=== PATIENT | female | born 1955 | race African-American/Black ===

== ENCOUNTER → 2017-08-18 | Outpatient (CLI) | payer MEDICARE ==
[~2017-08-18] MED LIST: BP MED; LISI2.5T3 PO; METF500T4 PO; OXYB5TAB PO
[2017-08-18 12:53] LABS: AUTOMATED NEUTROPHIL # 4.9 TH/MM3 (1.8-7.7); BASOPHIL # 0.1 TH/MM3 (0-0.2); BASOPHIL % 0.7 % (0.0-2.0); EOSINOPHIL # 0.1 TH/MM3 (0-0.4); EOSINOPHIL % 1.1 % (0.0-4.0); HEMATOCRIT 40.1 % (35.0-46.0); HEMOGLOBIN 13.1 GM/DL (11.6-15.3); LYMPH % 31.4 % (9.0-44.0); LYMPHOCYTE # 2.6 TH/MM3 (1.0-4.8); MEAN CELL VOLUME 80.6 FL (80.0-100.0); MEAN CORPUSCULAR HEMOGLOBIN 26.2 PG (27.0-34.0); MEAN CORPUSCULAR HGB CONC 32.6 % (32.0-36.0); MEAN PLATELET VOLUME 9.7 FL (7.0-11.0); MONO % 7.3 % (0.0-8.0); MONOCYTE # 0.6 TH/MM3 (0-0.9); NEUT % 59.5 % (16.0-70.0); PLATELET COUNT 229 TH/MM3 (150-450); RED BLOOD COUNT 4.98 MIL/MM3 (4.00-5.30); RED CELL DISTRIBUTION WIDTH 15.1 % (11.6-17.2); WHITE BLOOD COUNT 8.3 TH/MM3 (4.0-11.0)
[2017-08-18 13:04] LABS: PROTHROMBIN TIME - PATIENT 10.1 SEC (9.8-11.6)
[2017-08-18 13:19] LABS: ALBUMIN 3.6 GM/DL (3.4-5.0); ALT (GPT) 18 U/L (10-53); AST (GOT) 13 U/L (15-37); BICARBONATE 28.6 MEQ/L (21.0-32.0); BLOOD UREA NITROGEN 11 MG/DL (7-18); CALCIUM 9.5 MG/DL (8.5-10.1); CHLORIDE 101 MEQ/L (98-107); GLOMERULAR FILTRATION RATE 89 ML/MIN (>89); GLUCOSE,FASTING 133 MG/DL (74-99); SODIUM (NA) 140 MEQ/L (136-145)
--- NOTE | 2017-08-18 13:22 | RADRPT ---
EXAM DATE/TIME: 08/18/2017 12:41 [facility] COMPARISON: No previous studies available for comparison. INDICATIONS : Evaluate for pneumonia, pneumothorax or communicable disease. Pre op hysterectomy. MEDICAL HISTORY : None. SURGICAL HISTORY : None. ENCOUNTER: Initial ACUITY: 1 day PAIN SCORE: 0/10 LOCATION: Bilateral chest FINDINGS: PA and lateral views of the chest demonstrate the lungs to be symmetrically aerated without evidence of mass, infiltrate or effusion. The cardiomediastinal contours are unremarkable. Osseous structure s are intact. CONCLUSION: Normal examination. Chung Ruano MD on August 18, 2017 at 13:21 Board Certified Radiologist. This report was verified electronically.
[2017-08-18 13:25] LABS: ALKALINE PHOSPHATASE 102 U/L (45-117); TOTAL BILIRUBIN ADULT 0.4 MG/DL (0.2-1.0); TOTAL PROTEIN 7.9 GM/DL (6.4-8.2)
--- NOTE | 2017-08-19 08:53 | EKG ---
Date Performed: 08/18/2017 Time Performed: 11:57:12 PTAGE: 61 years EKG: SINUS TACHYCARDIA MINIMAL VOLTAGE CRITERIA FOR LVH, CONSIDER NORMAL VARIANT POSSIBLE ANTERI OR MYOCARDIAL INFARCTION, PROBABLY OLD ABNORMAL RHYTHM ECG NO PREVIOUS TRACING DOCTOR: Emani Trinh Interpretating Date/Time 08/19/2017 08:51:34
== END ==
LOC: CPRE 11:33
PROVIDERS: ATTEND Obstetrics & Gynecology Gynecologic Oncology
DX: Z01.810 Encounter for preprocedural cardiovascular examination (principal); Z01.811 Encounter for preprocedural respiratory examination; Z01.812 Encounter for preprocedural laboratory examination; C54.1 Malignant neoplasm of endometrium; R94.31 Abnormal electrocardiogram [ECG] [EKG]
CPT/HCPCS: 36415; 71046; 80053; 85025; 85610; 85730; 88321; 93005

== ENCOUNTER 2017-08-29 15:39 | Emergency (ER) | payer MEDICARE ==
[~2017-08-29] VITALS: Ht 162.6 cm; Wt 81.8 kg
[~2017-08-29 15:39] MED LIST changes: -BP MED
[2017-08-29 15:50] VITALS: BP 188/102; PULSE 109; RESP 20; TEMP 98.2; O2SAT 100
--- NOTE | 2017-08-29 16:52 | RADRPT ---
EXAM DATE/TIME: 08/29/2017 16:17 [facility] COMPARISON: CHEST PA & LAT, August 18, 2017, 12:41. INDICATIONS : Chest pain. MEDICAL HISTORY : None. SURGICAL HISTORY : None. ENCOUNTER: Initial ACUITY: 1 day PAIN SCORE: 7/10 LOCATION: Bilateral chest FINDINGS: PA and lateral views of the chest demonstrate the lungs to be symmetrically aerated without evidence of mass, infiltrate or effusion. The cardiomediastinal contours are unremarkable. Osseous structure s are intact. CONCLUSION: 1. No acute cardiopulmonary findings identified. Emmanuel Bartholomew MD on August 29, 2017 at 16:50 Board Certified Radiologist. This report was verified electronically.
[2017-08-29 17:23] VITALS: BP 177/89; PULSE 93; RESP 17; O2SAT 98
[2017-08-29] MEDS ORDERED: TRIA1CAP6 PO (17:23)
[2017-08-29 17:24] LABS: AUTOMATED NEUTROPHIL # 5.7 TH/MM3 (1.8-7.7); BASOPHIL % 0.3 % (0.0-2.0); EOSINOPHIL # 0.3 TH/MM3 (0-0.4); EOSINOPHIL % 2.7 % (0.0-4.0); HEMATOCRIT 38.8 % (35.0-46.0); HEMOGLOBIN 12.7 GM/DL (11.6-15.3); LYMPH % 32.8 % (9.0-44.0); LYMPHOCYTE # 3.2 TH/MM3 (1.0-4.8); MEAN CORPUSCULAR HEMOGLOBIN 26.8 PG (27.0-34.0); MEAN CORPUSCULAR HGB CONC 32.7 % (32.0-36.0); MEAN PLATELET VOLUME 9.3 FL (7.0-11.0); MONO % 5.7 % (0.0-8.0); MONOCYTE # 0.5 TH/MM3 (0-0.9); NEUT % 58.5 % (16.0-70.0); PLATELET COUNT 218 TH/MM3 (150-450); RED BLOOD COUNT 4.73 MIL/MM3 (4.00-5.30); RED CELL DISTRIBUTION WIDTH 15.6 % (11.6-17.2); WHITE BLOOD COUNT 9.7 TH/MM3 (4.0-11.0)
[2017-08-29 17:46] LABS: ALBUMIN 3.3 GM/DL (3.4-5.0); ALT (GPT) 20 U/L (10-53); AST (GOT) 16 U/L (15-37); BICARBONATE 26.8 MEQ/L (21.0-32.0); BLOOD UREA NITROGEN 14 MG/DL (7-18); CALCIUM 9.2 MG/DL (8.5-10.1); CHLORIDE 103 MEQ/L (98-107); CREATININE 1.01 MG/DL (0.50-1.00); GLOMERULAR FILTRATION RATE 68 ML/MIN (>89); GLUCOSE,RANDOM 179 MG/DL (74-106); MAGNESIUM 2.1 MG/DL (1.5-2.5); SODIUM (NA) 138 MEQ/L (136-145)
[2017-08-29 17:48] LABS: PROTHROMBIN TIME - PATIENT 9.8 SEC (9.8-11.6)
[2017-08-29 17:49] LABS: ALKALINE PHOSPHATASE 114 U/L (45-117); TOTAL BILIRUBIN ADULT 0.1 MG/DL (0.2-1.0); TOTAL PROTEIN 7.9 GM/DL (6.4-8.2); TROPONIN I LESS THAN 0.02 NG/ML (0.02-0.05)
--- NOTE | 2017-08-29 18:07 | PD ---
HPI Chief Complaint: Chest Pain Time Seen by Provider: 17:12 Travel History International Travel<30 days: No Contact w/Intl Traveler<30days: No Traveled to known affect area: No History of Present Illness HPI 61-year-old female arrives complaining of epigastric abdominal pain. Patient also reports vomiting. The symptoms were first noticed today at rest. She has no shortness of breath. There is no radiation of pain. There is no pleuritic pain. Patient reports a history of neoplasm and is scheduled to undergo surgery in a few days time. Decreased appetite is reported. She has had no cough or fever. PFSH Past Medical History Cancer: Yes Cardiovascular Problems: No Diabetes: No Endocrine: Yes Genitourinary: Yes (WEAK BLADDER) Hepatitis: No Hiatal Hernia: No Hypertension: Yes Musculoskeletal: Yes (ARTHRITIS IN R HAND) Neurologic: Yes (MENTAL DISABILITIES) Psychiatric: Yes Reproductive: No Respiratory: Yes Thyroid Disease: No Tetanus Vaccination: Unknown Influenza Vaccination: Yes Past Surgical History Surgical History: No Previous Surgery AICD: No Joint Replacement: No Pacemaker: No Social History Alcohol Use: No Tobacco Use: No Substance Use: No Allergies-Medications (Allergen,Severity, Reaction): Coded Allergies: No Known Allergies (Unverified Adverse Reaction, Unknown, 08/29/17) Reported Meds & Prescriptions Reported Meds & Active Scripts Active Percocet (Oxycodone-Acetaminophen) 5-325 mg Tab 1-2 Tab PO Q6H PRN Reported Dyrenium (Triamterene) 50 Mg Cap 50 Mg PO DAILY Metformin ER (Metformin HCl) 500 Mg Tabitha Unknown Dose PO DAILY With evening meal Oxybutynin ER 24 HR (Oxybutynin Chloride) 5 Mg Tab Unknown Dose PO DAILY Lisinopril 2.5 Mg Tab Unknown Dose PO DAILY Review of Systems Except as stated in HPI: all other systems reviewed are Neg General / Constitutional: No: Fever Physical Exam Narrative GENERAL: 61-year-old female pleasant well-nourished well-developed Vital Signs Date Time Temp Pulse Resp B/P (MAP) Pulse Ox O2 Delivery O2 Flow Rate FiO2 08/29/17 18:33 173/82 (112) 08/29/17 17:23 93 17 177/89 (118) 98 Room Air 08/29/17 17:18 93 17 98 Room Air 08/29/17 15:50 98.2 109 20 188/102 (130) 100 SKIN: Warm and dry. HEAD: Atraumatic. Normocephalic. EYES: Pupils equal and round. No scleral icterus. No injection or drainage. ENT: No nasal bleeding or discharge. Mucous membranes pink and moist. NECK: Trachea midline. No JVD. CARDIOVASCULAR: Regular rate and rhythm. RESPIRATORY: No accessory muscle use. Clear to auscultation. Breath sounds equal bilaterally. GASTROINTESTINAL: Minimal epigastric tenderness. Soft. Negative Stafford's sign. MUSCULOSKELETAL: Extremities without clubbing, cyanosis, or edema. No obvious deformities. NEUROLOGICAL: Awake and alert. No obvious cranial nerve deficits. Motor grossly within normal limits. Five out of 5 muscle strength in the arms and legs. Normal speech. PSYCHIATRIC: Appropriate mood and affect; insight and judgment normal. Data Data Last Documented VS Vital Signs Date Time Temp Pulse Resp B/P (MAP) Pulse Ox O2 Delivery O2 Flow Rate FiO2 08/29/17 18:33 173/82 (112) 08/29/17 17:23 93 17 98 Room Air 08/29/17 15:50 98.2 Orders Orders Electrocardiogram (08/29/17 15:53) Ckmb (Isoenzyme) Profile (08/29/17 15:53) Complete Blood Count With Diff (08/29/17 15:53) Comprehensive Metabolic Panel (08/29/17 15:53) Magnesium (Mg) (08/29/17 15:53) Prothrombin Time / Inr (Pt) (08/29/17 15:53) Act Partial Throm Time (Ptt) (08/29/17 15:53) Troponin I (08/29/17 15:53) Lipase (08/29/17 15:53) Chest, Pa & Lat (08/29/17 15:53) CKMB (08/29/17 16:10) CKMB% (08/29/17 16:10) Ed Discharge Order (08/29/17 18:21) Labs Laboratory Tests Test 08/29/17 16:10 White Blood Count 9.7 TH/MM3 Red Blood Count 4.73 MIL/MM3 Hemoglobin 12.7 GM/DL Hematocrit 38.8 % Mean Corpuscular Volume 82.0 FL Mean Corpuscular Hemoglobin 26.8 PG Mean Corpuscular Hemoglobin Concent 32.7 % Red Cell Distribution Width 15.6 % Platelet Count 218 TH/MM3 Mean Platelet Volume 9.3 FL Neutrophils (%) (Auto) 58.5 % Lymphocytes (%) (Auto) 32.8 % Monocytes (%) (Auto) 5.7 % Eosinophils (%) (Auto) 2.7 % Basophils (%) (Auto) 0.3 % Neutrophils # (Auto) 5.7 TH/MM3 Lymphocytes # (Auto) 3.2 TH/MM3 Monocytes # (Auto) 0.5 TH/MM3 Eosinophils # (Auto) 0.3 TH/MM3 Basophils # (Auto) 0.0 TH/MM3 CBC Comment DIFF FINAL Differential Comment Prothrombin Time 9.8 SEC Prothromb Time International Ratio 1.0 RATIO Activated Partial Thromboplast Time 27.7 SEC Blood Urea Nitrogen 14 MG/DL Creatinine 1.01 MG/DL Random Glucose 179 MG/DL Total Protein 7.9 GM/DL Albumin 3.3 GM/DL Calcium Level 9.2 MG/DL Magnesium Level 2.1 MG/DL Alkaline Phosphatase 114 U/L Aspartate Amino Transf (AST/SGOT) 16 U/L Alanine Aminotransferase (ALT/SGPT) 20 U/L Total Bilirubin 0.1 MG/DL Sodium Level 138 MEQ/L Potassium Level 3.4 MEQ/L Chloride Level 103 MEQ/L Carbon Dioxide Level 26.8 MEQ/L Anion Gap 8 MEQ/L Estimat Glomerular Filtration Rate 68 ML/MIN Total Creatine Kinase 112 U/L Creatine Kinase MB LESS THAN 0.5 NG/ML Troponin I LESS THAN 0.02 NG/ML Lipase 107 U/L MDM Medical Decision Making Medical Screen Exam Complete: Yes Emergency Medical Condition: Yes Medical Record Reviewed: Yes Differential Diagnosis Constipation, Gastritis, Acute Cholecystitis, Biliary Colic, Pancreatitis, MILLS , Hepatitis, Bowel Obstruction, Cystitis, Mesenteric Ischemia, AAA, Appendicitis , Renal Stone/Hydronephrosis, GERD, perforated viscous Narrative Course CBC & BMP Diagram 08/29/17 16:10 Total Protein 7.9, Albumin 3.3 L, Calcium Level 9.2, Magnesium Level 2.1, Alkaline Phosphatase 114, Aspartate Amino Transf (AST/SGOT) 16, Alanine Aminotransferase (ALT/SGPT) 20, Total Bilirubin 0.1 L Troponin less than 0.02 Lipase normal EKG shows Q waves in inferior leads without acute ischemic injury pattern The patient is resting comfortably and feels better, is alert and in no distress. The patients results and examination findings were discussed. The repeat examination is unremarkable and benign. The history, exam, diagnostic testing, and current condition do not suggest any significant pathology to warrant further testing, continued ED treatment, admission, or surgical evaluation at this point. The vital signs have been stable. The patient does not have uncontrollable pain, intractable vomiting, or other significant symptoms. The patient's condition is stable and appropriate for discharge. The patient will pursue further outpatient evaluation with a primary care physician or other designated or consulting physician as indicated in the discharge instructions. The patient expressed understanding and was agreeable with this plan. Diagnosis Primary Impression: Abdominal pain Qualified Codes: R10.9 - Unspecified abdominal pain Referrals: Primary Care Physician 2 days Med/Other Pt SpecificInfo: Prescription(s) given Scripts Oxycodone-Acetaminophen (Percocet) 5-325 mg Tab 1-2 TAB PO Q6H Y for PAIN SCALE 6 TO 10, #20 TAB 0 Refills Prov: Emmanuel Altamirano MD 08/29/17 Disposition: 01 DISCHARGE HOME Condition: Stable Emmanuel Altamirano MD Aug 29, 2017 18:07
[2017-08-29] MEDS ORDERED: PERC5TAB12 PO (18:23)
[2017-08-29 18:33] VITALS: BP 173/82
--- NOTE | 2017-08-30 20:16 | EKG ---
Date Performed: 08/29/2017 Time Performed: 16:02:56 PTAGE: 61 years EKG: SINUS TACHYCARDIA MARKED LEFT AXIS DEVIATION POSSIBLE RIGHT VENTRICULAR CONDUCTION DELAY NO NSPECIFIC T-WAVE ABNORMALITY ABNORMAL ECG PREVIOUS TRACING : 08/18/2017 11.57 Since the previous tracing, no significant change noted DOCTOR: Amy Moss Interpretating Date/Time 08/30/2017 20:16:07
== END 2017-08-29 18:40 | disposition home or self-care (01) ==
LOC: NEPE 15:39
DX: R10.13 Epigastric pain (principal); R00.0 Tachycardia, unspecified; R94.31 Abnormal electrocardiogram [ECG] [EKG]; M19.041 Primary osteoarthritis, right hand; I10 Essential (primary) hypertension; F79 Unspecified intellectual disabilities; Z79.899 Other long term (current) drug therapy
CPT/HCPCS: 71046; 80053; 82550; 82552; 83690; 83735; 84484; 85025; 85610; 85730; 93005

== ENCOUNTER 2017-09-01 05:29 | Observation (INO) | payer MEDICARE ==
[~2017-09-01] VITALS: Ht 162.6 cm; Wt 88.3 kg
[~2017-09-01 05:29] MED LIST changes: +PERC5TAB12 PO; +TRIA1CAP6 PO
[2017-09-01] MEDS ORDERED: CHLORHEXIDINE GLUCONATE 2 % 1 PACK (2 CLOTHS) TOPICAL PRN (06:00)
[2017-09-01] MEDS ORDERED: SODIUM CHLORIDE FLUSH PRN IV FLUSH (06:00)
[2017-09-01] MEDS ORDERED: POVIDONE IODINE 5% (ANTISEPSIS KIT) 4 APPLICATIONS EACH NARE PRN (06:00)
[2017-09-01] MEDS ORDERED: HEPARIN SODIUM - SQ 10,000 UNITS/ML VIAL SQ PRN (06:00)
[2017-09-01] MEDS ORDERED: ceFAZolin 2 GM PREMIX 50 ML IV SCH (06:00)
[2017-09-01] MEDS ORDERED: SODIUM CHLORID 0.9% 500 ML IV PRN (06:00)
[2017-09-01] MEDS ORDERED: METOPROLOL TARTRATE 25 MG TAB PO PRN (06:00)
[2017-09-01] MEDS ORDERED: LACTATED RINGER'S 1000 ML IV PRN (06:00)
[2017-09-01] MEDS ORDERED: DIAZ5 PO (06:44)
[2017-09-01] MEDS ORDERED: OMEP20TA93 PO (06:44)
[2017-09-01] MEDS ORDERED: DETR4CAP PO (06:44)
[2017-09-01] MEDS ORDERED: LISI-515 PO (06:44)
[2017-09-01] MEDS ORDERED: SUGAMMADEX SODIUM 200 MG/2 ML VIAL IV PUSH ONE (06:48)
[2017-09-01] MEDS ORDERED: ARTIFICIAL TEARS OPTH OINT 3.5 APPLIC/3.5 GM TUBO ONE (06:48)
[2017-09-01] MEDS ORDERED: ACETAMINOPHEN 1000 MG/100 ML 100 ML IV ONE (06:48)
[2017-09-01] MEDS ORDERED: FAMOTIDINE 20 MG/2 ML VIAL ONE (07:16)
[2017-09-01] MEDS ORDERED: LIDOCAINE 1%/EPINEPHrine 1:100,000 SOLN 20 ML VIAL INFIL ONE (09:38)
[2017-09-01] MEDS ORDERED: ceFAZolin INJ 1,000 MG VIAL IV ONE ×2 (11:41→12:00)
[2017-09-01] MEDS ORDERED: STERILE WATER FOR INJECTION 20 ML VIAL IV ONE (12:00)
[2017-09-01] MEDS ORDERED: ONDANSETRON HCL 4 MG/2 ML VIAL IV ONE (12:00)
[2017-09-01] MEDS ORDERED: ESMOLOL HCL 100 MG/10 ML VIAL IV ONE (12:00)
[2017-09-01] MEDS ORDERED: LABETALOL HCL 100 MG/20 ML VIAL IV ONE (12:00)
[2017-09-01] MEDS ORDERED: PROPOFOL 200 MG/20 ML AMP IV ONE (12:00)
[2017-09-01] MEDS ORDERED: KETOROLAC TROMETHAMINE 30 MG/ML (IVP) VIAL IV PUSH ONE (12:00)
[2017-09-01] MEDS ORDERED: NORMOSOL R INJ 1,000 ML IV ONE (12:00)
[2017-09-01] MEDS ORDERED: DEXAMETHASONE SOD PHOS 4 MG/ML VIAL IV ONE (12:00)
[2017-09-01] MEDS ORDERED: PHENYLEPH/NS 1000 MCG/10 ML SYR IV ONE (12:00)
[2017-09-01] MEDS ORDERED: ROCURONIUM INJ 50 MG/5 ML SYRINGE IV PUSH ONE (12:00)
[2017-09-01] MEDS ORDERED: VECURONIUM BROMIDE 20 MG VIAL IV ONE (12:00)
[2017-09-01] MEDS ORDERED: diphenhydrAMINE HCL 25 MG CAP PO PRN (12:15)
[2017-09-01] MEDS ORDERED: SODIUM CHLORIDE 0.9% FLUSH 10 ML FLUSH IV FLUSH PRN (12:15)
[2017-09-01] MEDS ORDERED: ONDANSETRON HCL 4 MG/2 ML VIAL IVP PRN (12:15)
[2017-09-01] MEDS ORDERED: MIDAZOLAM HCL 2 MG/2 ML VIAL ONE (12:47)
[2017-09-01] MEDS ORDERED: DO NOT ADM ANY ANTICOAGULANT DRUGS PRN (13:00)
[2017-09-01] MEDS ORDERED: *LABETALOL HCL 100 MG/20 ML VIAL PERIprocedural Use ONLY ONE (14:03)
[2017-09-01] MEDS ORDERED: *morphine SULFATE 10 MG/ML PERIprocedure ONLY ONE (15:10)
[2017-09-01] MEDS ORDERED: GLUCAGON 1 MG/ML VIAL OTHER PRN (15:30)
[2017-09-01] MEDS ORDERED: oxyCODONE/ACETAMINOPHEN 5 MG/325 MG TAB PO PRN ×2 (15:30)
[2017-09-01] MEDS ORDERED: DEXTROSE 50% IN WATER 50 ML VIAL(D50) IV PUSH PRN (15:30)
[2017-09-01] MEDS: D5-1/2 NS + KCL 20 MEQ INJ 1,000 ML IV SCH ×2 (15:30→22:17)
[2017-09-01] MEDS ORDERED: DIAZEPAM 5 MG TAB PO PRN (16:00)
[2017-09-01] MEDS: KETOROLAC TROMETHAMINE 30 MG/ML (IVP) VIAL IVP SCH ×2 (16:00→22:04)
[2017-09-01 17:00] VITALS: BP 132/82; PULSE 102; RESP 16; TEMP 99; O2SAT 99
[2017-09-01 20:00] VITALS: BP 129/72; PULSE 105; RESP 18; TEMP 98.5; O2SAT 96
[2017-09-01] MEDS ORDERED: SODIUM CHLORIDE 0.9% FLUSH 10 ML FLUSH IV FLUSH SCH (21:00)
[2017-09-01] MEDS: SODIUM CHLORIDE FLUSH BID IV FLUSH SCH (22:06)
[2017-09-01] MEDS: INSULIN NovoLIN REGULAR SUPPLEMENTAL SCALE SQ SCH (22:08)
[2017-09-02] VITALS: BP 133/78; PULSE 103; RESP 18; TEMP 97.7; O2SAT 96
[2017-09-02 04:00] VITALS: BP 134/81; PULSE 98; RESP 18; TEMP 97.5; O2SAT 97
[2017-09-02] MEDS: KETOROLAC TROMETHAMINE 30 MG/ML (IVP) VIAL IVP SCH ×2 (04:00→08:58)
[2017-09-02 05:58] LABS: AUTOMATED NEUTROPHIL # 10.7 TH/MM3 (1.8-7.7); BASOPHIL % 0.3 % (0.0-2.0); EOSINOPHIL % 0.1 % (0.0-4.0); HEMATOCRIT 35.6 % (35.0-46.0); HEMOGLOBIN 11.5 GM/DL (11.6-15.3); LYMPH % 15.3 % (9.0-44.0); LYMPHOCYTE # 2.1 TH/MM3 (1.0-4.8); MEAN CELL VOLUME 81.2 FL (80.0-100.0); MEAN CORPUSCULAR HEMOGLOBIN 26.3 PG (27.0-34.0); MEAN CORPUSCULAR HGB CONC 32.4 % (32.0-36.0); MONO % 6.6 % (0.0-8.0); MONOCYTE # 0.9 TH/MM3 (0-0.9); NEUT % 77.7 % (16.0-70.0); PLATELET COUNT 203 TH/MM3 (150-450); RED BLOOD COUNT 4.38 MIL/MM3 (4.00-5.30); RED CELL DISTRIBUTION WIDTH 15.5 % (11.6-17.2); WHITE BLOOD COUNT 13.7 TH/MM3 (4.0-11.0)
[2017-09-02 06:16] LABS: CALCIUM 8.5 MG/DL (8.5-10.1); CREATININE 0.83 MG/DL (0.50-1.00)
[2017-09-02] MEDS: INSULIN NovoLIN REGULAR SUPPLEMENTAL SCALE SQ SCH ×2 (07:59→12:00)
[2017-09-02 08:00] VITALS: BP 119/81; PULSE 95; RESP 16; TEMP 97.9; O2SAT 96
[2017-09-02] MEDS: SODIUM CHLORIDE FLUSH BID IV FLUSH SCH (08:00)
--- NOTE | 2017-09-02 08:23 | HHI.PR ---
Subjective . no new c/o reported minimal verbal communication c/w baseline Objective . afeb, 88-105, 16-18, 129-163/69-87 h/h 11.5/35.6, bun/creat 110.83, k 3.8, glucose 205 i/o 2180/1350 somnolent, nad cta except mild basilar rales, rrr sont, nd, nt, clean, dry no bleeding reported ext nt, scds in place Assessment/Plan . pod #1 hemodynamically stable in d/w sister yesterday, the family strongly requests short-term placement in rehab facility Clara Monteiro is unable to care for herself, and the family members feel they cannot care for her during early post-op recovery despite prior conversation and post-op planning where nursing was arranged, the family now does not agree with that plan of care consult lining caser for E&M, placement in skilled facility increase OOB activity, d/c agudelo, decrease ivf, adat, uncertain if she can perform spirometry Sandra Saleh MD Sep 02, 2017 08:23
[2017-09-02] MEDS ORDERED: TOLTERODINE TARTRATE 4 MG CAP LA PO SCH (09:00)
[2017-09-02] MEDS ORDERED: LISINOPRIL 20 MG TAB PO SCH (09:00)
[2017-09-02] MEDS ORDERED: PANTOPRAZOLE SOD 20 MG DELAYED RELEASE TAB PO SCH (09:00)
[2017-09-02] MEDS ORDERED: TRIAMTERENE 50 MG PO SCH (09:00)
[2017-09-02] MEDS ORDERED: OXYC1TAB63 PO (09:06)
[2017-09-02] MEDS: D5-1/2 NS + KCL 20 MEQ INJ 1,000 ML IV SCH (09:13)
--- NOTE | 2017-09-02 09:58 | MP ---
cc: Sandra Saleh MD, R John MD Khan,[place] MD DATE OF OPERATION: 09/01/2017 DATE OF PROCEDURE: 09/01/2017 PREOPERATIVE DIAGNOSIS: 1. Grade 2 endometrial adenocarcinoma. 2. Postmenopausal bleeding. 3. Enlarged uterus. POSTOPERATIVE DIAGNOSES: 1. Grade 2 endometrial adenocarcinoma. 2. Postmenopausal bleeding. 3. Enlarged uterus. 4. Extensive pelvic adhesions. PROCEDURE PERFORMED: Laparoscopic hysterectomy, bilateral salpingo-oophorectomy, bilateral pelvic lymphadenectomy, extensive lysis of adhesions. SURGEON: Sandra Saleh MD CONTAMINATION CONSULTANT: Ismael certified surgical tech/first assistant. ANESTHESIA: General endotracheal anesthesia. ESTIMATED BLOOD LOSS: 200 mL. URINE OUTPUT: 250 mL. IV FLUIDS: 1700 mL HISTORY OF PRESENT ILLNESS: This 61-year-old female who has had postmenopausal bleeding of uncertain duration, but it is at least 2 years. She is not a good historian. She is unable to provide self-care and she is cared for largely by her sisters who state that they are unaware of her bleeding for this prolonged period of time. Nevertheless, as the bleeding worsened, evaluation was sought. She was found to have an enlarged uterus, prominent endometrial stripe. Biopsy was obtained which showed a grade 2 endometrial adenocarcinoma. She was seen, counseled and evaluated. She seemed to understand the pertinent aspects of our discussion, although she her verbal communication is minimal. Her decisions are made jointly with her sisters. They agreed and wanted to move forward with surgery. She was started on low-dose Progesterone. Surgery could not be done immediately as she had an EKG suggestive of an infarct which required a further evaluation and cardiac clearance. This was eventually accomplished. Even though she was posed at a moderate risk, her and the family wished to proceed with surgery. She is seen again in the preop holding area where the findings and plan of care are again discussed with her and her sister. Our office staff has already made arrangements. Home health has been arranged to help check on her up after discharge, which was in keeping with discussion with the family. Questions were asked and answered and they expressed understanding to move forward with surgery. FINDINGS: The uterus was enlarged lobulated with what appeared to be at least a couple of leiomyomas. The endometrial cavity had been shown on imaging to be prominent due to tumor. The lower uterine segment was dilated, but the cervix itself seemed normal. Tubes and ovaries were grossly normal. There were no overtly enlarged lymph nodes in the pelvis or periaortic region, although there were a couple of borderline prominent lymph nodes in the pelvis. In the peritoneal cavity, the liver diaphragm edges were smooth. The omentum, large and small bowel and adjacent mesentery appeared normal in that there were no peritoneal implants. There were extensive adhesions in the pelvis, suggestive of prior diverticulitis. She does have some diverticulum. The right gonadal vessels were stretched and adnexa were essentially raised a 90 degree angle above the pelvic brim and there were entwined with the bowel mesentery and pericolonic fat. The colon was adherent against the left pelvic sidewall, obstructing access to the left pelvic sidewall and the left cul-de-sac was obliterated. On the right side, the ileocecal region there were dense adhesions, although the colon and the appendix in this region appeared normal and there were adhesions to the right anterior abdominal wall. The uterus, once removed, was evaluated by pathologist. The uterine cavity had sounded to approximately 11 cm. There were a couple of leiomyomas. The tumor itself was 4.5 cm in greatest dimension and appeared to invade into the wall of the uterus approximately 50% of the depth. There was extension into the lower uterine segment without obvious extension into the cervix on preliminary assessment. STATEMENT OF COMPLEXITY/MODIFIER: Complexity of this case was significantly increased due to extensive pelvic adhesions. An estimated additional 90 minutes were required for lysis of adhesions to safely access the abdomen and pelvis to restore normal anatomy and to accomplish surgical objectives. The modifiers will be applied accordingly. DESCRIPTION OF PROCEDURE: She was taken to the operating room and placed in dorsal lithotomy position, after general endotracheal anesthesia was administered, timeout was undertaken. She was identified by site recognition and hospital ID bracelet and the proposed procedure was reviewed and confirmed. She was carefully positioned in padded Ramón stirrups. Her arms were padded and secured to the sides. She was further secured to the operating table with egg crate padding and tape in a cross chest over the shoulder fashion. All sites noted to be properly aligned with no malalignment or pressure points. She was prepped and draped in sterile fashion, placed in lithotomy position. Cervix grasped. Uterine cavity sounded. Standard VCare manipulator inserted and secured in usual fashion. Mcallister catheter placed in the bladder. She was returned to low lithotomy position. Change of sterile gauze was undertaken. We confirmed an orogastric tube in the stomach on suction and we completed draping in anticipation of laparoscopy. With manual elevation of the abdominal wall and direct laparoscopic visualization, 5 mm cannula was introduced into the left upper quadrant and an atraumatic entry was confirmed. Carbon dioxide gas was introduced into the peritoneal cavity. A 12 mm cannula was placed in the midline above the umbilicus, 8 mm cannula was placed in the right upper quadrant, left lateral quadrant and the original 5 exchanged for an 8 mm cannula. She was placed in Trendelenburg position. Peritoneal washings were obtained for cytology. The anatomy was explored with findings as described above. Small bowel loops were folded back into the abdomen beneath the omentum and adhesions that were fixed in the pelvis as described. The lower edge of the infracolic omentum was part of the adhesive problem in the left lower quadrant, but as the small bowel could be retracted satisfactorily, 3 [place] sponges were placed around the root of the small bowel mesentery. The anatomy was surveyed with findings as described above. Robotic system brought into the operative field, attached in usual fashion. Monopolar scissors, fenestrated bipolar forceps, and ProGrasp manipulator were placed in arms 1, 2 and 3 respectively and I took my place at the surgeon's console. Dissection was initiated on the left side where adhesiolysis was carried out with sharp dissection. Retroperitoneal dissection was initiated by opening the peritoneum lateral and parallel to the colon, dissecting the colon to mobilize it medially. The mesentery and pericolonic fat was dissected away from the adnexal structures. The gonadal vessels were noted to be essentially folded back toward the abdomen and the tube and ovary and the gonadal structures were stretched out due to the adhesive component, suggesting a history of prior diverticulitis. Continued dissection was carried out until the colon was freed from the left pelvic sidewall. The gonadal vessels could be isolated. The left ureter was identified. The intervening peritoneum was opened. The infundibulopelvic ligament was cauterized and transected. Additional adhesions were taken down to free the cul-de-sac and to free the colon from its fixation in the cul-de-sac and then the posterior peritoneum was opened along the left side of the uterus and cervix. The left round ligament was isolated, cauterized, and transected, and the left vesicouterine peritoneum was dissected off the lower uterine segment and cervix. The left uterine vessels were isolated, skeletonized, and cauterized. Attention was directed toward the right side. Additional lysis of adhesion was carried out to mobilize the ileocecal region to retract the cecum so that it could be the pelvic brim away from being stuck to the adnexal structures. The right round ligament was cauterized and transected. The anterior and posterior leaves of the broad ligament were opened. The right ureter was identified. The right infundibulopelvic ligament was isolated. The intervening peritoneum was opened. The infundibulopelvic ligament was isolated to the level of the pelvic brim where it was cauterized and transected. Posterior peritoneum opened along the right side of the uterus and cervix and the right vesicouterine peritoneum dissected off the lower uterine segment and cervix. The right uterine vessels were skeletonized and cauterized. Inspection confirmed that the uterus was now blanched as the major blood supply had been secured and so the right uterine vessels were transected. The cardinal, paracervical and uterosacral ligaments were isolated, cauterized and transected in stepwise fashion. Attention was redirected toward the left side, where the left uterine vessels were transected. The cardinal paracervical and uterosacral ligaments were isolated, cauterized and transected in stepwise fashion, thereby freeing the attachments around the uterus and cervix. Circumferential colpotomy was performed the cervix from the upper vagina. Due to the large size of the uterus relative to the pelvic outlet, I left the surgeon's consult to facilitate transvaginal delivery of the specimen. Tenaculums were placed on the cervix. With repositioning, countertraction, the specimen was able to be delivered transvaginally, which included uterus, cervix, tubes and ovaries, that were sent for initial histopathologic evaluation. A pneumo-occluder balloon was placed into the vagina to maintain pneumoperitoneum and I returned to the surgeon's console. Instruments 1 and 3 were exchanged for needle drivers and 0 Vicryl suture was introduced. Vaginal cuff was closed starting at the left corner, full thickness closure including the uterosacral ligament and posterior peritoneum and tied via instrument tie. The closure was held on countertraction as a running continuous full thickness closure was carried across the vaginal cuff to the contralateral corner where it was similarly secured and tied and the needle was cut and removed. The vaginal cuff was inspected. It was well supported and hemostatic. There was a good margin between the vaginal cuff and the bladder wall. The pelvis was irrigated. Small bleeders were made hemostatic with bipolar cautery. Pathology came back showing a fairly large tumor with approximately 50% invasion and in keeping with our preoperative discussions, we would try to assess for presence or absence of extrauterine disease but try to minimize morbidity, especially concerned about lymphedema given her limited physical capacity at present. Nevertheless, they were in favor of a lymph node dissection if factors warranted consideration of such. Accordingly, the paravesical and pararectal spaces were opened bilaterally. The lymph nodes were visibly and palpably inspected. There were no overtly neoplastic lymph nodes. Similarly, the paraaortic and paracaval region were inspected and palpated. There were no overtly enlarged lymph nodes. Preoperative CT imaging was recommended and scheduled, but they did not follow through with that, so we had no preoperative imaging, but on direct inspection, there was no overt adenopathy. Dissection was carried out, initially on the right side where lymphatic tissue starting at the bifurcation of the iliac were removed with bipolar cautery and sharp dissection, continued down distally to the circumflex iliac vein. Lymphatic tissue from the external iliac artery and vein were removed. The obturator space was opened, lymphatic tissue ventral to the obturator nerve was removed, but care was taken to not strip all of the lymphatics off the obturator and some lymphatics were left against the pelvic sidewall, carefully inspected and palpated, they appeared normal and these were left in situ in an effort to reduce chance of any lymphedema and this lymph node bundle was placed in the right pelvis for later retrieval. Similar steps were carried out on the left side, where lymphatics were removed, starting from the bifurcation of the iliac, distally to the circumflex iliac vein. The overlying lymphatics from the artery and vein were removed. Lymphatics ventral to the obturator nerve were removed with some normal appearing lymphatics intentionally left along the obturator nerve and against the pelvic sidewall and the lymphatic bundle was placed in left pelvis for later retrieval. It was felt that all reasonable surgical objectives in this individual had been completed, so the robotic instruments were removed after confirming that there was good hemostasis. Hemostatic Surgicel powder was placed throughout the pelvis to assist in continued hemostasis. The robotic instruments were removed. The robotic system was disengaged from the operative field. I reentered the bedside under sterile condition. A 12 cm EndoCatch bag was used to capture the right and left pelvic lymph nodes and they were removed through the 12 mm cannula. Next, under direct visualization, each of the 3 [place] sponges that had been placed in the peritoneum were removed. They were removed individually, inspected and noted to be removed in their entirety. Visual inspection confirmed there were no remaining foreign objects in the peritoneal cavity. Good hemostasis. Preliminary counts were correct. The 12 mm fascial defect was closed with interrupted 0 Vicryl sutures using a needle pass fascia closure apparatus. They were tied securely which rendered the fascia completely airtight and hemostatic. The remaining cannulas were withdrawn, carbon dioxide gas was removed from the peritoneal cavity; 3-0 Vicryl subcutaneous, 3-0 Vicryl subcuticular and Steri-Strips used to close these incisions. She was turned to dorsal lithotomy position. Exam confirmed, the vaginal cuff to be well supported and hemostatic. There were no remaining foreign objects in the vagina. Final counts were correct. There was some superficial irritation, superficial laceration at the introitus which were rendered hemostatic with interrupted 3-0 Vicryl sutures and focal topical silver nitrate. As final counts were correct and all steps were completed, she was returned to dorsal supine position and was pending reversal of anesthesia when I left the operating room to precede her to the postanesthesia care unit. MD AMILCAR Lopez/ROYER , 08:45 AM , 09:56 AM
[2017-09-02 12:00] VITALS: BP 131/84; PULSE 86; RESP 18; TEMP 98.4; O2SAT 95
== END 2017-09-02 16:09 | disposition home or self-care (01) ==
LOC: HSDC 05:29 → HSDI 12:10 → HCIN 17:05
PROVIDERS: ADMIT Obstetrics & Gynecology Gynecologic Oncology; ATTEND Obstetrics & Gynecology Gynecologic Oncology
DX: C54.1 Malignant neoplasm of endometrium (principal); N95.0 Postmenopausal bleeding; N85.2 Hypertrophy of uterus; N73.6 Female pelvic peritoneal adhesions (postinfective); I10 Essential (primary) hypertension; K21.9 Gastro-esophageal reflux disease without esophagitis
CPT/HCPCS: 00840; 38571; 58552; 96374; 96376; G0378; J0131; J0690; J1100; J1644; J1885; J2250; J2270; J2370; J2405; J3010; J3480; J7120; 80048; 82948; 85025; 86850; 86900; 86901; 88112; 88305; 88307; 88309; 88311; 88331; 94150

== ENCOUNTER 2017-09-04 11:25 | Inpatient (IN) | payer MEDICARE, OTHER ==
[2017-09-04] VITALS (15 sets, daily range): BP systolic 124–222; BP diastolic 70–108; PULSE 82–124; RESP 16–18; TEMP 98.3–98.6; O2SAT 94–99
[~2017-09-04] VITALS: Ht 167.6 cm; Wt 84.0 kg
[~2017-09-04 11:25] MED LIST changes: +DETR4CAP PO; +DIAZ5 PO; +LISI-515 PO; -LISI2.5T3 PO; +OMEP20TA93 PO; -OXYB5TAB PO; +OXYC1TAB63 PO; -PERC5TAB12 PO
[2017-09-04] MEDS ORDERED: SODIUM CHLORID 0.9% 500 ML INJ 500 ML IV ONE (11:45)
[2017-09-04] MEDS ORDERED: MORPHINE SULFATE 8 MG/ML INJ IV PUSH ONE ×2 (11:45→15:00)
[2017-09-04] MEDS ORDERED: ONDANSETRON HCL 4 MG/2 ML VIAL IV PUSH ONE (11:45)
[2017-09-04 12:07] LABS: AUTOMATED NEUTROPHIL # 8.1 TH/MM3 (1.8-7.7); BASOPHIL # 0.1 TH/MM3 (0-0.2); BASOPHIL % 0.6 % (0.0-2.0); EOSINOPHIL # 0.1 TH/MM3 (0-0.4); HEMATOCRIT 43.4 % (35.0-46.0); LYMPH % 33.3 % (9.0-44.0); LYMPHOCYTE # 4.5 TH/MM3 (1.0-4.8); MEAN CELL VOLUME 80.8 FL (80.0-100.0); MEAN CORPUSCULAR HEMOGLOBIN 26.1 PG (27.0-34.0); MEAN CORPUSCULAR HGB CONC 32.3 % (32.0-36.0); MEAN PLATELET VOLUME 8.9 FL (7.0-11.0); MONO % 5.9 % (0.0-8.0); MONOCYTE # 0.8 TH/MM3 (0-0.9); NEUT % 59.2 % (16.0-70.0); PLATELET COUNT 246 TH/MM3 (150-450); RED BLOOD COUNT 5.36 MIL/MM3 (4.00-5.30); RED CELL DISTRIBUTION WIDTH 15.6 % (11.6-17.2); WHITE BLOOD COUNT 13.6 TH/MM3 (4.0-11.0)
[2017-09-04 12:29] LABS: BACTERIA, URINE RARE /hpf; BILIRUBIN, URINE NEG (NEG); BLOOD, URINE MOD (NEG); GLUCOSE,URINE NEG (NEG); KETONE, URINE NEG (NEG); MUCUS URINE FEW /lpf (OCC); NITRITE,URINE NEG (NEG); PH, URINE 7.5 (5.0-8.5); SQUAMOUS EPITHELIAL CELL URINE 3 /hpf (0-5); URINE COLOR YELLOW (YELLW/STRAW); URINE LEUKOCYTE ESTERASE LARGE (NEG)
--- NOTE | 2017-09-04 12:37 | PD ---
HPI Chief Complaint: Abdominal Pain Time Seen by Provider: 11:35 Travel History International Travel<30 days: No Contact w/Intl Traveler<30days: No Traveled to known affect area: No History of Present Illness HPI This is a 61-year-old female status post hysterectomy 4 days ago, presents today with complaints of abdominal pain. Patient reports not having any medication at home for her pain. She denies any fevers, chills. She is able to have a bowel movement as well as pass urine. According to the paramedics, her sister who cares for her he did not fill her pain medication prescription. There is no drainage from her incision site. There are no other complaints at the time of my examination. PFSH Past Medical History Asthma: Yes Blood Disorders: No Anxiety: Yes Depression: No Heart Rhythm Problems: No Cancer: No Cardiovascular Problems: No High Cholesterol: No Chemotherapy: No Chest Pain: No Congestive Heart Failure: No COPD: No Diabetes: Yes Patient Takes Glucophage: Yes Endocrine: Yes Gastrointestinal Disorders: No Genitourinary: Yes (WEAK BLADDER) Hepatitis: No Hiatal Hernia: No Hypertension: Yes Implanted Vascular Access Dvce: No Medical other: No Musculoskeletal: Yes (ARTHRITIS IN R HAND) Neurologic: Yes (MENTAL DISABILITIES) Psychiatric: Yes Reproductive: No Respiratory: Yes Radiation Therapy: No Sleep Apnea: No Thyroid Disease: No ?: Not Past Surgical History AICD: No Joint Replacement: No Pacemaker: No Other Surgery: No Social History Alcohol Use: No Tobacco Use: No Substance Use: No Allergies-Medications (Allergen,Severity, Reaction): Coded Allergies: No Known Allergies (Unverified Allergy, Unknown, 09/01/17) Reported Meds & Prescriptions Reported Meds & Active Scripts Active Oxycodone-Acetaminophen 5-325 (Oxycodone HCl/Acetaminophen) 5 Mg-325 Mg Tablet 1 Tab PO Q4H PRN Reported Valium (Diazepam) 5 Mg Tab 5 Mg PO TID PRN Detrol LA (Tolterodine Tartrate) 4 Mg Cap 4 Mg PO DAILY Omeprazole 20 Mg Tab 20 Mg PO DAILY Lisinopril 20 Mg Tab 20 Mg PO DAILY Dyrenium (Triamterene) 50 Mg Cap 50 Mg PO DAILY Metformin ER (Metformin HCl) 500 Mg Tabitha 500 Mg PO DAILY With evening meal Review of Systems Except as stated in HPI: all other systems reviewed are Neg General / Constitutional: No: Fever, Chills HENT: No: Headaches, Lightheadedness, Neck Pain Cardiovascular: No: Chest Pain or Discomfort, Palpitations Respiratory: No: Cough, Shortness of Breath Gastrointestinal: Positive: Abdominal Pain (Generalized), No: Nausea, Vomiting , Constipation, Changes in Bowel Habits Genitourinary: No: Frequency, Dysuria Musculoskeletal: No: Weakness, Pain Neurologic: Positive: Other (Left lateral gaze which patient reports is not new..), No: Weakness, Dizziness, Headache Physical Exam Narrative GENERAL: Well-developed well-nourished female resting comfortably in the bedside. SKIN: Focused skin assessment warm/dry. HEAD: Atraumatic. Normocephalic. EYES: Left lateral gaze. No scleral icterus. No injection or drainage. ENT: No nasal bleeding or discharge. Mucous membranes pink and moist. NECK: Trachea midline. No JVD. CARDIOVASCULAR: Regular rate and rhythm. No murmur appreciated. RESPIRATORY: No accessory muscle use. Clear to auscultation. Breath sounds equal bilaterally. GASTROINTESTINAL: Abdomen soft, soft, nondistended. Patient has generalized discomfort in her periumbilical infraumbilical area. There is no rebound. The surgical scars appear intact and clean. No drainage or redness. MUSCULOSKELETAL: No obvious deformities. No clubbing. No cyanosis. No edema. NEUROLOGICAL: Awake and alert. Patient has a left lateral gaze which is not new according to patient. Motor grossly within normal limits. Normal speech. Data Data Last Documented VS Vital Signs Date Time Temp Pulse Resp B/P (MAP) Pulse Ox O2 Delivery O2 Flow Rate FiO2 09/04/17 14:19 124 18 170/101 (124) 97 Nasal Cannula 2.00 09/04/17 11:38 98.3 Orders Orders Complete Blood Count With Diff (09/04/17 11:41) Basic Metabolic Panel (Bmp) (09/04/17 11:41) Urinalysis - C+S If Indicated (09/04/17 11:41) Iv Access Insert/Monitor (09/04/17 11:41) Ecg Monitoring (09/04/17 11:41) Oximetry (09/04/17 11:41) Morphine Inj (Morphine Inj) (09/04/17 11:45) Ondansetron Inj (Zofran Inj) (09/04/17 11:45) Sodium Chlorid 0.9% 500 Ml Inj (Ns 500 M (09/04/17 11:45) Urine Culture (09/04/17 12:06) Ceftriaxone Inj (Rocephin Inj) (09/04/17 13:00) Ct Abd/Pel W Iv Contrast(Rout) (09/04/17 12:47) Iohexol 350 Inj (Omnipaque 350 Inj) (09/04/17 13:30) Levofloxacin 750 Mg Premix Inj (Levaquin (09/04/17 15:00) Metronidazole 500 Mg Inj (Flagyl 500 Mg (09/04/17 15:00) Morphine Inj (Morphine Inj) (09/04/17 15:00) Admit Order (Ed Use Only) (09/04/17 15:06) Labs Laboratory Tests Test 09/04/17 11:46 09/04/17 12:06 White Blood Count 13.6 TH/MM3 Red Blood Count 5.36 MIL/MM3 Hemoglobin 14.0 GM/DL Hematocrit 43.4 % Mean Corpuscular Volume 80.8 FL Mean Corpuscular Hemoglobin 26.1 PG Mean Corpuscular Hemoglobin Concent 32.3 % Red Cell Distribution Width 15.6 % Platelet Count 246 TH/MM3 Mean Platelet Volume 8.9 FL Neutrophils (%) (Auto) 59.2 % Lymphocytes (%) (Auto) 33.3 % Monocytes (%) (Auto) 5.9 % Eosinophils (%) (Auto) 1.0 % Basophils (%) (Auto) 0.6 % Neutrophils # (Auto) 8.1 TH/MM3 Lymphocytes # (Auto) 4.5 TH/MM3 Monocytes # (Auto) 0.8 TH/MM3 Eosinophils # (Auto) 0.1 TH/MM3 Basophils # (Auto) 0.1 TH/MM3 CBC Comment DIFF FINAL Differential Comment Blood Urea Nitrogen 18 MG/DL Creatinine 1.03 MG/DL Random Glucose 142 MG/DL Calcium Level 9.5 MG/DL Sodium Level 138 MEQ/L Potassium Level 3.8 MEQ/L Chloride Level 104 MEQ/L Carbon Dioxide Level 24.8 MEQ/L Anion Gap 9 MEQ/L Estimat Glomerular Filtration Rate 66 ML/MIN Urine Color YELLOW Urine Turbidity HAZY Urine pH 7.5 Urine Specific [place] 1.021 Urine Protein TRACE mg/dL Urine Glucose (UA) NEG mg/dL Urine Ketones NEG mg/dL Urine Occult Blood MOD Urine Nitrite NEG Urine Bilirubin NEG Urine Urobilinogen 2.0 MG/DL Urine Leukocyte Esterase LARGE Urine RBC 16 /hpf Urine WBC 22 /hpf Urine Squamous Epithelial Cells 3 /hpf Urine Bacteria RARE /hpf Urine Mucus FEW /lpf Microscopic Urinalysis Comment CULTURE INDICATED MDM Medical Decision Making Medical Screen Exam Complete: Yes Emergency Medical Condition: Yes Differential Diagnosis Inadequate pain control versus intra-abdominal infection versus retained intra- abdominal gas from surgery Narrative Course 61-year-old female who is status post laparoscopic hysterectomy 4 days ago, presents today with abdominal pain. Patient had not filled her pain prescription at discharge. The patient is afebrile. She is tender in her abdomen, in her periumbilical and infraumbilical area. There is no rebound or guarding. White count is elevated at 13,000. Patient's urinalysis shows evidence of UTI. She had been given 1 g of Rocephin IV 1 dose. On reexamination, she was still operator gin above her bladder and concern was that this could still be something postsurgical. A CT scan with IV contrast was ordered which showed inflammation of the large intestine. This was concerning for diverticulitis. Given this and her presenting symptoms, she will be admitted to the hospital for IV antibiotics. Case was discussed with the senior resident , who agreed for the admission. Diagnosis Primary Impression: Diverticulitis large intestine Additional Impressions: Cystitis Developmentally delayed Status post laparoscopic hysterectomy 4 days prior. Admitting Information Admitting Physician Requests: Admit Danial Riley MD Sep 04, 2017 12:37
[2017-09-04 12:45] LABS: BICARBONATE 24.8 MEQ/L (21.0-32.0); CALCIUM 9.5 MG/DL (8.5-10.1); CREATININE 1.03 MG/DL (0.50-1.00)
[2017-09-04] MEDS ORDERED: cefTRIAXone INJ 1,000 MG in SODIUM CHLORIDE 0.9% INJ 100 ML IV ONE (13:00)
[2017-09-04] MEDS ORDERED: IOHEXOL 350 MG/ML 10 ML VIAL (for RAD DIAG) IVCONTRAST ONE (13:30)
--- NOTE | 2017-09-04 14:05 | RADRPT ---
EXAM DATE/TIME: 09/04/2017 13:35 [place] COMPARISON: No previous studies available for comparison. INDICATIONS : Lower abdomen pain for two days. IV CONTRAST: 97 cc Omnipaque 350 (iohexol) IV ORAL CONTRAST: No oral contrast ingested. RADIATION DOSE: 14.87 CTDIvol (mGy) MEDICAL HISTORY : Hypertension. diabetes SURGICAL HISTORY : Hysterectomy. ENCOUNTER: Initial ACUITY: 2 days PAIN SCALE: 6/10 LOCATION: Bilateral lower quadrant TECHNIQUE: Volumetric scanning of the abdomen and pelvis was performed. Using automated exposure control and ad justment of the mA and/or kV according to patient size, radiation dose was kept as low as reasonably achievable to obtain optimal diagnostic quality images. DICOM format image data is available electro nically for review and comparison. FINDINGS: LOWER LUNGS: There are bilateral bandlike areas of increased parenchymal density within the lower lobes consistent with platelike atelectasis. LIVER: Homogeneous density without lesion. There is no dilation of the biliary tree. No calcified gallston es. SPLEEN: Normal size without lesion. PANCREAS: Within normal limits. KIDNEYS: Normal in size and shape. There is no concerning mass, stone or hydronephrosis. Small benign cysts. ADRENAL GLANDS: Within normal limits. VASCULAR: There is no aortic aneurysm. BOWEL/MESENTERY: There is a small amount of free fluid identified within the pelvis and within the mesentery adjacent to a focal area of wall thickening within the sigmoid colon. There are small diverticula identified i n this area and this may represent acute diverticulitis. ABDOMINAL WALL: Within normal limits. RETROPERITONEUM: There is no lymphadenopathy. BLADDER: No wall thickening or mass. REPRODUCTIVE: Surgically absent. INGUINAL: There is no lymphadenopathy or hernia. MUSCULOSKELETAL: Within normal limits for patient age. CONCLUSION: There is a small amount of free fluid identified within the pelvis abutting an area of focal wall thi ckening within the sigmoid colon concerning for acute diverticulitis. No evidence of free air or absc ess.. Rebecca Rosas MD on September 04, 2017 at 13:58 Board Certified Radiologist. This report was verified electronically.
--- NOTE | 2017-09-04 14:39 | HHI.HP ---
[facility] Service Family Medicine Primary Care Physician [place] Reyes MD Admission Diagnosis Diagnoses: International Travel<30 Days: No Contact w/Intl Traveler<30days: No Known Affected Area: No History of Present Illness Patient is a 61 y/o F w/hx of developmental delay, HTN, and DM2 presenting for lower abdominal pain. Sister at bedside, is caregiver; she takes care of her at home. Patient is a poor historian. Four days ago, patient had a hysterectomy for endometrial cancer at [place] performed by Dr. Saleh. Patient has not underwent any other procedures or treatment for cancer. Since surgery, she was discharged to a halfway ([facility] for support. Blood pressures and heart rate were elevated, was in significant pain. Because of severity of pain, she was transferred to [place]. Home health came by once on tuesday. Has decreased appetite, increased fatigue. No diarrhea. Unsure of nausea or vomiting. Has felt sweaty and hot. No other complaints. Needs walking with support. Sees car washer, not able to recall name Dr. Salmeron is her group leader semiconductor processing and Dr. Luis Alfredo Reyes is her PCP. (Maria Esther Srinivasan MD R1) Review of Systems Constitutional: COMPLAINS OF: Fatigue, Change in appetite (Decreased appetite, decreased drinking), DENIES: Fever Endocrine: DENIES: Polydipsia, Polyuria Eyes: DENIES: Eye pain, Vision loss Ears, nose, mouth, throat: DENIES: Hearing loss, Throat pain Respiratory: COMPLAINS OF: Cough (comes and goes) Cardiovascular: DENIES: Chest pain, Palpitations Gastrointestinal: DENIES: Constipation, Diarrhea Genitourinary: DENIES: Urinary frequency, Urgency Musculoskeletal: DENIES: Joint pain, Muscle aches Integumentary: DENIES: Abnormal pigmentation, Pruritus Hematologic/lymphatic: DENIES: Bruising Immunologic/allergic: DENIES: Eczema Neurologic: COMPLAINS OF: Abnormal gait (Post surgery "weakness"), DENIES: Seizures, Tremor Psychiatric: COMPLAINS OF: Anxiety (Maria Esther Srinivasan MD R1) Past Family Social History Past Medical History HTN Intellectual disability Anemia Post menopausal age 56 DM2 urinary incontinence [place] - 2 years ago Past Surgical History Laparoscopic hysterectomy, bilateral salpingo-oophorectomy, bilateral pelvic lymphadenectomy, extensive lysis of adhesions on 09/01/2017 (Maria Esther Srinivasan MD R1) Allergies: Coded Allergies: No Known Allergies (Unverified Allergy, Unknown, 09/01/17) Family History Dad: [place], passed 56 Mom: stroke, living Social History No ETOH, drugs Lives w/sister in a house in [place] (Maria Esther Srinivasan MD R1) Physical Exam Vital Signs Vital Signs Date Time Temp Pulse Resp B/P (MAP) Pulse Ox O2 Delivery O2 Flow Rate FiO2 09/04/17 14:19 124 18 170/101 (124) 97 Nasal Cannula 2.00 09/04/17 13:09 109 18 153/86 (108) 97 Room Air 09/04/17 12:54 114 18 176/85 (115) 99 Nasal Cannula 2.00 09/04/17 11:55 18 95 Nasal Cannula 2.00 09/04/17 11:40 18 09/04/17 11:38 98.3 122 18 222/108 (146) 94 Room Air Physical Exam GENERAL: This is an overweight, female resting quietly in bed. Does not answer questions unless prompted. SKIN: Cool and dry. HEAD: Atraumatic. Normocephalic. EYES: Pupils equal round and reactive. Extraocular motions intact. No injection or drainage. ENT: Throat without erythema, tonsillar hypertrophy or exudate. Uvula midline. Airway patent. Mucus membranes appear dry. NECK: Trachea midline. CARDIOVASCULAR: Regular rate and rhythm without murmurs, gallops, or rubs. RESPIRATORY: Clear to auscultation. Breath sounds equal bilaterally. No wheezes , rales, or rhonchi. GASTROINTESTINAL: Abdomen tender at the lower quadrants. Voluntary gaurding to palpation. Few bowel sounds. MUSCULOSKELETAL: Edema in the lower extremities. wearing compression stocking. Endorses pain to palpation of the upper chest wall NEUROLOGICAL: Awake and alert. Normal speech. Laboratory Laboratory Tests Test 09/04/17 11:46 09/04/17 12:06 White Blood Count 13.6 Red Blood Count 5.36 Hemoglobin 14.0 Hematocrit 43.4 Mean Corpuscular Volume 80.8 Mean Corpuscular Hemoglobin 26.1 Mean Corpuscular Hemoglobin Concent 32.3 Red Cell Distribution Width 15.6 Platelet Count 246 Mean Platelet Volume 8.9 Neutrophils (%) (Auto) 59.2 Lymphocytes (%) (Auto) 33.3 Monocytes (%) (Auto) 5.9 Eosinophils (%) (Auto) 1.0 Basophils (%) (Auto) 0.6 Neutrophils # (Auto) 8.1 Lymphocytes # (Auto) 4.5 Monocytes # (Auto) 0.8 Eosinophils # (Auto) 0.1 Basophils # (Auto) 0.1 CBC Comment DIFF FINAL Differential Comment Blood Urea Nitrogen 18 Creatinine 1.03 Random Glucose 142 Calcium Level 9.5 Sodium Level 138 Potassium Level 3.8 Chloride Level 104 Carbon Dioxide Level 24.8 Anion Gap 9 Estimat Glomerular Filtration Rate 66 Urine Color YELLOW Urine Turbidity HAZY Urine pH 7.5 Urine Specific [place] 1.021 Urine Protein TRACE Urine Glucose (UA) NEG Urine Ketones NEG Urine Occult Blood MOD Urine Nitrite NEG Urine Bilirubin NEG Urine Urobilinogen 2.0 Urine Leukocyte Esterase LARGE Urine RBC 16 Urine WBC 22 Urine Squamous Epithelial Cells 3 Urine Bacteria RARE Urine Mucus FEW Microscopic Urinalysis Comment CULTURE INDICATED Date/Time Source Procedure Growth Status 09/04/17 12:06 Urine Clean Catch Urine Culture Pending Received (Maria Esther Srinivasan MD R1) Result Diagram: 09/04/17 1146 09/04/17 1146 Caprini VTE Risk Assessment Caprini VTE Risk Assessment: Mod/High Risk (score >= 2) Caprini Risk Assessment Model Point Value = 1 Point Value = 2 Point Value = 3 Point Value = 5 Age 41-60 Minor surgery BMI > 25 kg/m2 Swollen legs Varicose veins or History of unexplained or recurrent spontaneous Oral contraceptives or hormone replacement Sepsis (< 1 month) Serious lung disease, including pneumonia (< 1 month) Abnormal pulmonary function Acute myocardial infarction Congestive heart failure (< 1 month) History of inflammatory bowel disease Medical patient at bed rest Age 61-74 Arthroscopic surgery Major open surgery (> 45 min) Laparoscopic surgery (> 45 min) Malignancy Confined to bed (> 72 hours) Immobilizing plaster cast Central venous access Age >= 75 History of VTE Family history of VTE Factor V Leiden Prothrombin [id number] Lupus anticoagulant Anticardiolipin antibodies Elevated serum homocysteine Heparin-induced thrombocytopenia Other congenital or acquired thrombophilia Stroke (< 1 month) Elective arthroplasty Hip, pelvis, or leg fracture Acute spinal cord injury (< 1 month) Prophylaxis Regimen Total Risk Factor Score Risk Level Prophylaxis Regimen 0-1 Low Early ambulation 2 Moderate Order ONE of the following: *Sequential Compression Device (SCD) *Heparin 5000 units SQ BID 3-4 Higher Order ONE of the following medications: *Heparin 5000 units SQ TID *Enoxaparin/Lovenox 40 mg SQ daily (WT < 150 kg, CrCl > 30 mL/min) *Enoxaparin/Lovenox 30 mg SQ daily (WT < 150 kg, CrCl > 10-29 mL/min) *Enoxaparin/Lovenox 30 mg SQ BID (WT < 150 kg, CrCl > 30 mL/min) AND/OR *Sequential Compression Device (SCD) 5 or more Highest Order ONE of the following medications: *Heparin 5000 units SQ TID (Preferred with Epidurals) *Enoxaparin/Lovenox 40 mg SQ daily (WT < 150 kg, CrCl > 30 mL/min) *Enoxaparin/Lovenox 30 mg SQ daily (WT < 150 kg, CrCl > 10-29 mL/min) *Enoxaparin/Lovenox 30 mg SQ BID (WT < 150 kg, CrCl > 30 mL/min) AND *Sequential Compression Device (SCD) (Maria Esther Srinivasan MD R1) Assessment and Plan Assessment and Plan Patient is a 61-year-old female with a history of developmental delay and endometrial cancer status post laparoscopic hysterectomy with BSO (09/01) admitted for acute diverticulitis and sepsis. CT of the abdomen shows no abscess or fistula. We'll give clear liquid diet, IV fluids, pain control ( norco and dilaudid) and antibiotics. Due to concern for patient being high risk (cancer hx, advanced age, and recent surgery), will place patient on cefepime 2 g IV every 8 hours and Flagyl 500 mg IV every 8 hours. Consulted case management and PT since patient may require additional support after discharge. (Maria Esther Srinivasan MD R1) Attending Attestation THIS CASE WAS DISCUSSED WITH THE RESIDENT PHYSICIANS. I HAVE REVIEWED THE RECORD AND AGREE WITH THE ABOVE NOTE AND PLAN OF CARE WAS DISCUSSED. I HAVE AUTHORIZED THE ORDER FOR ADMISSION TO AN IN-PATIENT STATUS. (Lyssa Santamaria MD) Problem List: (1) Diverticulitis large intestine ICD Codes: K57.32 - Diverticulitis of large intestine without perforation or abscess without bleeding Plan: CT shows acute reticulitis affecting the sigmoid colon Cefepime 2 g IV every 8 hours Flagyl 500 mg IV every 8 hours Clear liquid diet IV fluids at maintenance rate Monitor daily CBC improvement in white count (2) Cystitis ICD Codes: N30.90 - Cystitis, unspecified without hematuria Status: Acute Plan: UA positive for leukocyte esterase, WBCs Urine culture pending Current antibiotic treatment covers for gram negatives Will monitor I/Os (3) HTN (hypertension) ICD Codes: I10 - Essential (primary) hypertension Plan: Blood pressure elevated on admission, 150s/86-176/85 On lisinopril 20 mg daily and triamterene 50 mg daily Continue triamterene Hold lisinopril as this may not be appropriate treatment for female Start amlodipine 10 mg daily hydralazine 10 mg by mouth every 6 hours PRN and clonidine 0.1 mg by mouth every 6 hours PRN for blood pressure greater than 180/100 (4) DM2 (diabetes mellitus, type 2) ICD Codes: E11.9 - Type 2 diabetes mellitus without complications Plan: On metformin 500 mg daily at home Hold metformin, start low-dose sliding scale (5) Urinary incontinence ICD Codes: R32 - Unspecified urinary incontinence Plan: Continue tolterodine 4 mg by mouth daily (6) Development delay ICD Codes: R62.50 - Unspecified lack of expected normal physiological development in childhood Plan: Patient lives at home with sister Was transferred to halfway after discharge Requires assistance feeding herself, bathing, going to the toilet Case management consulted (7) FEN Plan: Fluids: Normal saline IV fluids 100 MLS per hour Electrolytes: Supplement as needed Nutrition: Diabetic diet DVT prophylaxis: Lovenox q24H, SCDs bilaterally GI prophylaxis: Omeprazole 20 mg daily (Maria Esther Srinivasan MD R1) Physician Certification 2 Midnight Certification Type: Admission for Inpatient Services Order for Inpatient Services The services are ordered in accordance with Medicare regulations or non- Medicare payer requirements, as applicable. In the case of services not specified as inpatient-only, they are appropriately provided as inpatient services in accordance with the 2-midnight benchmark. Estimated LOS (days): 2 2 days is the estimated time the patient will need to remain in the hospital, assuming treatment plan goals are met and no additional complications. Post-Hospital Plan: Not yet determined (Maria Esther Srinivasan MD R1) 2 Midnight Certification Type: Admission for Inpatient Services Post-Hospital Plan: Not yet determined (Lyssa Santamaria MD) Maria Esther Srinivasan MD R1 Sep 04, 2017 14:39 Lyssa Santamaria MD Sep 05, 2017 14:47
[2017-09-04] MEDS ORDERED: LEVOFLOXACIN 750 MG PREMIX INJ 150 ML IV ONE (15:00)
[2017-09-04] MEDS ORDERED: metroNIDAZOLE 500 MG INJ 100 ML IV ONE (15:00)
[2017-09-04] MEDS ORDERED: MAGNESIUM HYDROXIDE SUSP 30 ML CUP PO PRN (15:30)
[2017-09-04] MEDS ORDERED: DIAZEPAM 5 MG TAB PO PRN (15:30)
[2017-09-04] MEDS ORDERED: SENNOSIDES 8.6 MG TAB PO PRN (15:30)
[2017-09-04] MEDS ORDERED: NALOXONE HCL 0.4 MG/ML AMP IV PUSH PRN (15:30)
[2017-09-04] MEDS ORDERED: LACTULOSE SYRUP 20 GM/30 ML CUP PO PRN (15:30)
[2017-09-04] MEDS ORDERED: ACETAMINOPHEN 325 MG TAB PO PRN (15:30)
[2017-09-04] MEDS ORDERED: BISACODYL 10 MG SUPP RECTAL PRN (15:30)
[2017-09-04] MEDS ORDERED: ONDANSETRON HCL 4 MG/2 ML VIAL IVP PRN (15:30)
[2017-09-04] MEDS ORDERED: SODIUM CHLORIDE 0.9% FLUSH 10 ML FLUSH IV FLUSH PRN (15:30)
[2017-09-04] MEDS ORDERED: HYDROmorphone HCL 2 MG TAB PO PRN (15:45)
[2017-09-04] MEDS ORDERED: ACETAMINOPHEN/HYDROcodone 325 MG/5 MG TAB PO PRN (15:45)
[2017-09-04] MEDS ORDERED: DEXTROSE 50% IN WATER 50 ML VIAL(D50) IV PUSH PRN (16:00)
[2017-09-04] MEDS ORDERED: hydrALAZINE HCL 10 MG TAB PO PRN (16:00)
[2017-09-04] MEDS ORDERED: cloNIDine HCL 0.1 MG TAB PO PRN (16:00)
[2017-09-04] MEDS ORDERED: GLUCAGON 1 MG/ML VIAL OTHER PRN (16:00)
[2017-09-04] MEDS: amLODIPine BESYLATE 5 MG TAB PO SCH (16:53)
[2017-09-04] MEDS: SODIUM CHLOR 0.9% 1000 ML INJ 1,000 ML IV SCH (16:54)
[2017-09-04] MEDS: ENOXAPARIN SODIUM 40 MG/0.4 ML SYRINGE SQ SCH (16:54)
[2017-09-04] MEDS: INSULIN ASPART SUPPLEMENTAL SCALE SQ SCH ×2 (16:54→20:58)
[2017-09-04 20:28] LABS: ALBUMIN 3.2 GM/DL (3.4-5.0); ALT (GPT) 19 U/L (10-53); AST (GOT) 16 U/L (15-37); DIRECT BILIRUBIN ADULT 0.1 MG/DL (0.0-0.2)
[2017-09-04 20:31] LABS: ALKALINE PHOSPHATASE 94 U/L (45-117); INDIRECT BILIRUBIN 0.2 MG/DL (0.0-0.8); TOTAL BILIRUBIN ADULT 0.3 MG/DL (0.2-1.0); TOTAL PROTEIN 8.6 GM/DL (6.4-8.2); TROPONIN I LESS THAN 0.02 NG/ML (0.02-0.05)
[2017-09-04] MEDS: SODIUM CHLORIDE 0.9% FLUSH 10 ML FLUSH IV FLUSH SCH (20:58)
[2017-09-04] MEDS: CEFEPIME INJ 2,000 MG in SODIUM CHLORIDE 0.9% INJ 100 ML IV SCH (20:58)
[2017-09-04] MEDS: ACETAMINOPHEN/HYDROcodone 325 MG/7.5 MG TAB PO PRN (20:59)
[2017-09-04] MEDS ORDERED: metFORMIN HCL 500 MG TAB PO SCH (21:00)
[2017-09-04] MEDS: metroNIDAZOLE 500 MG INJ 100 ML IV SCH (23:31)
[2017-09-05] VITALS (17 sets, daily range): BP systolic 119–167; BP diastolic 70–86; PULSE 75–105; RESP 16–20; TEMP 95.7–98.2; O2SAT 95–97
[2017-09-05] MEDS: SODIUM CHLOR 0.9% 1000 ML INJ 1,000 ML IV SCH ×3 (01:26→21:09)
[2017-09-05] MEDS: CEFEPIME INJ 2,000 MG in SODIUM CHLORIDE 0.9% INJ 100 ML IV SCH ×2 (05:28→12:19)
[2017-09-05 05:51] LABS: AUTOMATED NEUTROPHIL # 7.7 TH/MM3 (1.8-7.7); BASOPHIL # 0.1 TH/MM3 (0-0.2); BASOPHIL % 0.6 % (0.0-2.0); EOSINOPHIL # 0.6 TH/MM3 (0-0.4); EOSINOPHIL % 4.9 % (0.0-4.0); HEMATOCRIT 37.3 % (35.0-46.0); HEMOGLOBIN 11.9 GM/DL (11.6-15.3); LYMPH % 23.2 % (9.0-44.0); LYMPHOCYTE # 2.8 TH/MM3 (1.0-4.8); MEAN CELL VOLUME 81.4 FL (80.0-100.0); MEAN CORPUSCULAR HEMOGLOBIN 26.1 PG (27.0-34.0); MEAN PLATELET VOLUME 8.8 FL (7.0-11.0); MONO % 7.1 % (0.0-8.0); MONOCYTE # 0.8 TH/MM3 (0-0.9); NEUT % 64.2 % (16.0-70.0); PLATELET COUNT 235 TH/MM3 (150-450); RED BLOOD COUNT 4.58 MIL/MM3 (4.00-5.30); RED CELL DISTRIBUTION WIDTH 15.6 % (11.6-17.2); WHITE BLOOD COUNT 11.9 TH/MM3 (4.0-11.0)
[2017-09-05] MEDS: metroNIDAZOLE 500 MG INJ 100 ML IV SCH ×2 (06:30→14:08)
[2017-09-05 07:52] LABS: ALBUMIN 2.9 GM/DL (3.4-5.0); ALKALINE PHOSPHATASE 84 U/L (45-117); ALT (GPT) 13 U/L (10-53); AST (GOT) 8 U/L (15-37); BICARBONATE 26.2 MEQ/L (21.0-32.0); BLOOD UREA NITROGEN 17 MG/DL (7-18); CALCIUM 8.5 MG/DL (8.5-10.1); CHLORIDE 107 MEQ/L (98-107); CREATININE 0.81 MG/DL (0.50-1.00); GLOMERULAR FILTRATION RATE 87 ML/MIN (>89); GLUCOSE,RANDOM 127 MG/DL (74-106); SODIUM (NA) 142 MEQ/L (136-145); TOTAL BILIRUBIN ADULT 0.4 MG/DL (0.2-1.0); TOTAL PROTEIN 7.4 GM/DL (6.4-8.2)
[2017-09-05] MEDS: amLODIPine BESYLATE 5 MG TAB PO SCH (08:51)
[2017-09-05] MEDS: INSULIN ASPART SUPPLEMENTAL SCALE SQ SCH ×4 (08:51→21:17)
[2017-09-05] MEDS: PANTOPRAZOLE SOD 20 MG DELAYED RELEASE TAB PO SCH (08:51)
[2017-09-05] MEDS: SODIUM CHLORIDE 0.9% FLUSH 10 ML FLUSH IV FLUSH SCH ×2 (08:52→21:09)
[2017-09-05] MEDS: TOLTERODINE TARTRATE 4 MG CAP LA PO SCH (08:53)
[2017-09-05] MEDS ORDERED: TRIAMTERENE 50 MG PO SCH (09:00)
[2017-09-05] MEDS: ACETAMINOPHEN/HYDROcodone 325 MG/7.5 MG TAB PO PRN (11:22)
--- NOTE | 2017-09-05 11:53 | EKG ---
Date Performed: 09/04/2017 Time Performed: 17:04:39 PTAGE: 61 years EKG: Sinus rhythm MARKED LEFT AXIS DEVIATION MODERATE VOLTAGE CRITERIA FOR LVH, CONSIDER NORMAL VARIANT NONSPECIFIC T- WAVE ABNORMALITY ABNORMAL ECG PREVIOUS TRACING : 08/29/2017 16.02 Since the previous tracing, no significant change noted DOCTOR: Emani Trinh Interpretating Date/Time 09/05/2017 11:51:26
--- NOTE | 2017-09-05 15:08 | HHI.FPPN ---
Addendum to progress note ADDENDUM Reason for addendum: Additonal documentation Additional information Please see resident H&P for full history. 61 year old woman with abdominal pain, post-op hysterectomy for endometrial cancer was admitted for suspected diverticulitis. Today patient reports she is much better with her pain. She did tolerate liquid diet this am and is hungry and asking about lunch. History is limited due to patients intellectual disability. Patient reports no BM for the past 4 days, denies fevers/chills, no vomiting or nausea. States does not have CP or SOB. On exam her vitals are stable and she is afebrile, she is in NAD and is alert and oriented HEENT - perrla, OP clear, no LAD, thyroid not enlarged Cards -- rrr, no murmurs Pulm -- CTA B ABd -- soft, minimal tenderness to deep palpation in the lower quadrants, hypoactive bowel Ext -- no edema, moving well, good DP and PT pulses, full ROM all 4 extremities. Nuero -- grossly intact, no focal deficits. Skin - no lesions, no rash - no CVA tenderness, no suprapubic tenderness 1. Abd pain -- has improved since admission so likely diverticulitis as this has improved with antibiotics. However, patient has not had BM in 4 days so consider post-op ileus from her surgery last week. She does have bowel sounds so will give her stool softeners/laxatives, changes abx to PO as she is clinically well appearing (cipro and flagyl). Advance her diet as tolerated. 2. HTN -- BP has improved since admission but still above goal. Will adjust her medication coverage. 3. DM - cont current regimen. Anticipate dc in 1-2 days pending her clinical course. Patient seen and dw the resident team -- Dr. North, Dr. Srinivasan, Dr. Andrea Santamaria,Lyssa Hayes MD Sep 05, 2017 15:08
[2017-09-05] MEDS: ENOXAPARIN SODIUM 40 MG/0.4 ML SYRINGE SQ SCH (16:15)
[2017-09-05] MEDS ORDERED: ENALAPRILAT 1.25 MG/ML VIAL IV PUSH PRN (16:45)
[2017-09-05] MEDS: metroNIDAZOLE 500 MG TAB PO SCH (22:50)
[2017-09-05] MEDS: CIPROFLOXACIN 500 MG TAB PO SCH (22:51)
[2017-09-06] VITALS: BP 159/93; PULSE 92; RESP 18; TEMP 96.1; O2SAT 94
[2017-09-06] MEDS: metroNIDAZOLE 500 MG TAB PO SCH ×3 (05:57→22:45)
[2017-09-06] MEDS: SODIUM CHLOR 0.9% 1000 ML INJ 1,000 ML IV SCH (07:26)
[2017-09-06 07:49] VITALS: O2SAT 96
[2017-09-06 08:00] VITALS: BP 134/66; PULSE 75; RESP 19; TEMP 97.7; O2SAT 95
[2017-09-06] MEDS: INSULIN ASPART SUPPLEMENTAL SCALE SQ SCH ×4 (08:00→21:00)
[2017-09-06 08:52] LABS: HEMATOCRIT 36.1 % (35.0-46.0); HEMOGLOBIN 11.7 GM/DL (11.6-15.3); MEAN CORPUSCULAR HEMOGLOBIN 26.3 PG (27.0-34.0); MEAN CORPUSCULAR HGB CONC 32.5 % (32.0-36.0); MEAN PLATELET VOLUME 8.8 FL (7.0-11.0); PLATELET COUNT 234 TH/MM3 (150-450); RED BLOOD COUNT 4.46 MIL/MM3 (4.00-5.30); RED CELL DISTRIBUTION WIDTH 15.4 % (11.6-17.2); WHITE BLOOD COUNT 9.4 TH/MM3 (4.0-11.0)
[2017-09-06] MEDS: CIPROFLOXACIN 500 MG TAB PO SCH ×2 (09:33→22:45)
[2017-09-06] MEDS: PANTOPRAZOLE SOD 20 MG DELAYED RELEASE TAB PO SCH (09:34)
--- NOTE | 2017-09-06 09:54 | HHI.FF ---
Face to Face Verification Diagnosis: (1) Diverticulitis large intestine (2) Cystitis Physical Therapy Order: Evaluate and Treat, Improve ambulation, Strength and gait training Home Health Nursing Order: Medical education Signs/symptoms of disease process Medication education-adverse effect Lead Driver Order: To Evaluate: Living conditions/environment, Support services Order: To Provide: Long range planning, Community services I have seen patient Clara Monteiro on 09/06/17. My clinical findings support the need for the requested home health care services because: Ltd mobility - disease progression Deconditioned w/ increased weakness Med compliance is questionable Limited ability to care for self Need for psychosocial assistance Impaired cognition/judgement High risk of falls I certify that my clinical findings support that this patient is homebound because: Impaired cognitive ability/safety Unsteady gait/balance Unsafe to leave home unassisted Need for psychosocial assistance Sherly Mendez MD, R3 Sep 06, 2017 09:54
[2017-09-06] MEDS ORDERED: AMLO10 PO (10:01)
[2017-09-06] MEDS ORDERED: BACT800T5 PO (10:06)
[2017-09-06] MEDS ORDERED: METR-1 PO (10:06)
--- NOTE | 2017-09-06 10:07 | HHI.DCPOC ---
Discharge Care Plan Diagnosis: (1) Diverticulitis large intestine (2) Cystitis Goals to Promote Your Health * To prevent worsening of your condition and complications * To maintain your health at the optimal level Directions to Meet Your Goals Take your medications as prescribed Follow your dietary instruction Follow activity as directed Keep your appointments as scheduled Take your immunizations and boosters as scheduled If your symptoms worsen call your PCP, if no PCP go to Urgent Care Center or Emergency Room Smoking is Dangerous to Your Health. Avoid second hand smoke Call the 24-hour hour crisis hotline for domestic abuse at Maria Esther Srinivasan MD R1 Sep 06, 2017 10:07
--- NOTE | 2017-09-06 11:39 | HHI.FPPN ---
Subjective Remarks Patient denies any pain. Had bowel movement x1. Eating and drinking, no abdominal pain or chest pain. (Maria Esther Srinivasan MD R1) Objective Vitals Vital Signs Date Time Temp Pulse Resp B/P (MAP) Pulse Ox O2 Delivery O2 Flow Rate FiO2 09/06/17 08:00 97.7 75 19 134/66 (88) 95 09/06/17 07:49 96 09/06/17 00:00 96.1 92 18 159/93 (115) 94 09/05/17 20:00 95.7 98 20 153/85 (107) 96 09/05/17 20:00 97.3 97 16 162/79 (106) 97 09/05/17 19:41 97 21 09/05/17 15:32 98.0 95 18 150/73 (98) 97 09/05/17 14:01 105 09/05/17 13:05 92 09/05/17 12:12 93 09/05/17 12:11 18 09/05/17 11:43 92 09/05/17 11:43 97.7 96 18 160/86 (110) 97 I/O 09/05/17 09/05/17 09/05/17 09/06/17 09/06/17 09/06/17 06:59 14:59 22:59 06:59 14:59 22:59 Intake Total 1219 ml 1800 ml 120 ml Output Total 600 ml 1000 ml Balance 619 ml 800 ml 120 ml Intake Oral 240 ml 600 ml 120 ml IV Total 979 ml 1200 ml Output Urine Total 600 ml 1000 ml # Voids 2 # Bowel Movements 0 (Maria Esther Srinivasan MD R1) Result Diagram: 09/06/17 0813 09/05/17 0520 Objective Remarks GENERAL: This is an overweight, female resting comfortably in bed. SKIN: Cool and dry. HEAD: Atraumatic. Normocephalic. EYES: Extraocular motions intact. No injection or drainage. ENT: Throat without erythema, tonsillar hypertrophy or exudate. Uvula midline. Airway patent. Mucus membranes appear dry. NECK: Trachea midline. CARDIOVASCULAR: Regular rate and rhythm without murmurs, gallops, or rubs. RESPIRATORY: Clear to auscultation. Breath sounds equal bilaterally. No wheezes , rales, or rhonchi. GASTROINTESTINAL: Abdomen non tender, non distended MUSCULOSKELETAL: no change from previous exam NEUROLOGICAL: Awake and alert. Normal speech. (Maria Esther Srinivasan MD R1) A/P Assessment and Plan Patient is a 61-year-old female with a history of developmental delay and endometrial cancer status post laparoscopic hysterectomy with BSO (09/01) admitted for acute diverticulitis and sepsis. CT of the abdomen shows no abscess or fistula. Given clear liquid diet, IV fluids, pain control (norco and dilaudid) and antibiotics. Due to concern for patient being high risk (cancer hx , advanced age, and recent surgery), patient was initially placed on cefepime 2 g IV every 8 hours and Flagyl 500 mg IV every 8 hours. UA positive for UTI, + gram negative rods. Transitioned to cipro and flagyl PO to be taken outpatient for total course of 7 days, which covers for UTI infection. Consulted case management and PT . PT advises home w/home health and [facility] CM assisting in coordinating care w/ family. Discharge Planning D/C today. Requires assistance w/ADLs and wheeled walker for ambulation ( fatigues quickly). Will coordinate w/CM today for DC to rehab w/PT. (Maria Esther Srinivasan MD R1) Attending Attestation Patient seen and examined. Case reviewed and discussed with the resident team. Agree with plan of care as discussed with me and documented in the resident note. Patients pain has resolved, she feels clinically well. She is stable medically for discharge once placement determination made with case management and family. (Lyssa Santamaria MD) Problem List: (1) Diverticulitis large intestine ICD Codes: K57.32 - Diverticulitis of large intestine without perforation or abscess without bleeding Plan: CT shows acute reticulitis affecting the sigmoid colon Improvement in sx, normal WBC count today s/p 1 day cipro and 2 doses Flagyl 500 mg IV every 8 hours D/C w/oral Bactrim and metronidazole to be taken for total course of 7 days. Resume diabetic diet D/C fluids (2) Cystitis ICD Codes: N30.90 - Cystitis, unspecified without hematuria Status: Acute Plan: UA positive for leukocyte esterase, WBCs Urine culture shows Gram negatives Current antibiotic treatment covers for gram negatives see above (3) HTN (hypertension) ICD Codes: I10 - Essential (primary) hypertension Status: Chronic Plan: Blood pressure elevated on admission, 150s/86-176/85 On lisinopril 20 mg daily and triamterene 50 mg daily Continue triamterene Held lisinopril, can be continued on d/c. Advise follow-up w/PCP for further management amlodipine 10 mg daily hydralazine 10 mg by mouth every 6 hours PRN and clonidine 0.1 mg by mouth every 6 hours PRN for blood pressure greater than 180/100 (4) DM2 (diabetes mellitus, type 2) ICD Codes: E11.9 - Type 2 diabetes mellitus without complications Status: Chronic Plan: On metformin 500 mg daily at home Hold metformin, start low-dose sliding scale (5) Urinary incontinence ICD Codes: R32 - Unspecified urinary incontinence Status: Chronic Plan: Continue tolterodine 4 mg by mouth daily (6) Development delay ICD Codes: R62.50 - Unspecified lack of expected normal physiological development in childhood Status: Chronic Plan: Patient lives at home with sister [facility] Requires assistance feeding herself, bathing, going to the toilet Case management consulted (7) FEN Plan: Fluids: PO Electrolytes: Supplement as needed Nutrition: Diabetic diet DVT prophylaxis: Lovenox q24H, SCDs bilaterally GI prophylaxis: Protonix 20 mg daily PO (Maria Esther Srinivasan MD R1) Problem Qualifiers (1) Diverticulitis large intestine: Qualified Codes: K57.32 - Diverticulitis of large intestine without perforation or abscess without bleeding Maria Esther Srinivasan MD R1 Sep 06, 2017 11:39 Lyssa Santamaria MD Sep 06, 2017 16:09
[2017-09-06 12:00] VITALS: BP 158/78; PULSE 101; RESP 19; TEMP 98.7; O2SAT 98
[2017-09-06] MEDS: SODIUM CHLORIDE 0.9% FLUSH 10 ML FLUSH IV FLUSH SCH ×2 (12:55→22:45)
[2017-09-06] MEDS: TOLTERODINE TARTRATE 4 MG CAP LA PO SCH (12:55)
[2017-09-06 16:00] VITALS: BP 143/81; PULSE 104; RESP 19; TEMP 98.1; O2SAT 95
[2017-09-06] MEDS: ENOXAPARIN SODIUM 40 MG/0.4 ML SYRINGE SQ SCH (17:18)
[2017-09-06 20:00] VITALS: BP 132/80; PULSE 110; RESP 18; TEMP 96; O2SAT 92
[2017-09-07] VITALS: BP 121/78; PULSE 108; RESP 18; TEMP 97.8; O2SAT 92
[2017-09-07] MEDS: SODIUM CHLOR 0.9% 1000 ML INJ 1,000 ML IV SCH ×2 (00:30→06:31)
[2017-09-07] MEDS: metroNIDAZOLE 500 MG TAB PO SCH ×2 (06:30→14:34)
[2017-09-07 08:00] VITALS: BP 133/79; PULSE 96; RESP 17; TEMP 96.7; O2SAT 96
[2017-09-07] MEDS: SODIUM CHLORIDE 0.9% FLUSH 10 ML FLUSH IV FLUSH SCH (09:00)
[2017-09-07] MEDS: CIPROFLOXACIN 500 MG TAB PO SCH (09:36)
[2017-09-07] MEDS: INSULIN ASPART SUPPLEMENTAL SCALE SQ SCH ×2 (09:36→12:00)
[2017-09-07] MEDS: TOLTERODINE TARTRATE 4 MG CAP LA PO SCH (09:36)
[2017-09-07] MEDS: PANTOPRAZOLE SOD 20 MG DELAYED RELEASE TAB PO SCH (09:36)
--- NOTE | 2017-09-07 10:55 | HHI.FPPN ---
Subjective Remarks Patient states she is doing well, no acute medical complaints. She is upset today about not being able to have gone home yesterday. Wants to stay w/sister, does NOT want to go to rehab or to a care home. (Maria Esther Srinivasan MD R1) Objective Vitals Vital Signs Date Time Temp Pulse Resp B/P (MAP) Pulse Ox O2 Delivery O2 Flow Rate FiO2 09/07/17 08:00 96.7 96 17 133/79 (97) 96 09/07/17 00:00 97.8 108 18 121/78 (92) 92 09/06/17 20:00 96.0 110 18 132/80 (97) 92 09/06/17 16:00 98.1 104 19 143/81 (101) 95 09/06/17 12:00 98.7 101 19 158/78 (104) 98 I/O 09/06/17 09/06/17 09/06/17 09/07/17 09/07/17 09/07/17 07:00 15:00 23:00 07:00 15:00 23:00 Intake Total 600 ml 120 ml 240 ml 300 ml Output Total 700 ml Balance -100 ml 120 ml 240 ml 300 ml Intake Oral 600 ml 120 ml 240 ml IV Total 300 ml Output Urine Total 700 ml # Voids 2 3 # Bowel Movements 0 (Maria Esther Srinivasan MD R1) Result Diagram: 09/06/17 0813 09/05/17 0520 Objective Remarks GENERAL: This is an overweight, female sitting in chair with head resting on hands. SKIN: Cool and dry. HEAD: Atraumatic. Normocephalic. EYES: Extraocular motions intact. No injection or drainage. NECK: Trachea midline. CARDIOVASCULAR: Regular rate and rhythm without murmurs, gallops, or rubs. RESPIRATORY: Clear to auscultation. Breath sounds equal bilaterally. No wheezes , rales, or rhonchi. GASTROINTESTINAL: Abdomen non tender, non distended MUSCULOSKELETAL: no change from previous exam NEUROLOGICAL: Awake and alert. Normal speech. (Maria Esther Srinivasan MD R1) A/P Assessment and Plan Patient is a 61-year-old female with a history of developmental delay and endometrial cancer status post laparoscopic hysterectomy with BSO (09/01) admitted for acute diverticulitis and sepsis. CT of the abdomen shows no abscess or fistula. Given clear liquid diet, IV fluids, pain control (norco and dilaudid) and antibiotics. Due to concern for patient being high risk (cancer hx , advanced age, and recent surgery), patient was initially placed on cefepime 2 g IV every 8 hours and Flagyl 500 mg IV every 8 hours. UA positive for UTI, + gram negative rods. Transitioned to cipro and flagyl PO to be taken outpatient for total course of 7 days, which covers for UTI infection. Antibiotics were given PO and patient was set to go home w/home health. However, family did not want to take patient home; may need to be set up for SNF. Will be in contact w/ CM about their recs. Discharge Planning Medically clear for D/C. Requires assistance w/ADLs and wheeled walker for ambulation (fatigues quickly). (Maria Esther Srinivasan MD R1) Attending Attestation Patient seen and examined. Case reviewed and discussed with the resident team. Agree with plan of care as discussed with me and documented in the resident note. Patient remains clinically improved and at her baseline, with her intellectual disability and her overall weakness and debility she will require assistance. Sister unable to provide this at this time and patient will need rehab to regain strength prior to being able to return to home. DC pending placement only (Lyssa Santamaria MD) Problem List: (1) Diverticulitis large intestine ICD Codes: K57.32 - Diverticulitis of large intestine without perforation or abscess without bleeding Plan: CT showed acute reticulitis affecting the sigmoid colon s/p 1 day cipro and 2 doses Flagyl 500 mg IV every 8 hours D/C w/oral Bactrim and metronidazole to be taken for total course of 7 days. (2) Cystitis ICD Codes: N30.90 - Cystitis, unspecified without hematuria Status: Acute Plan: UA positive for leukocyte esterase, WBCs Urine culture showed Gram negatives Current antibiotic treatment covers for gram negatives see above (3) HTN (hypertension) ICD Codes: I10 - Essential (primary) hypertension Status: Chronic Plan: Continue home meds: triamterene lisinopril 20 daily amlodipine 10 mg daily hydralazine 10 mg by mouth every 6 hours PRN and clonidine 0.1 mg by mouth every 6 hours PRN for blood pressure greater than 180/100 (4) DM2 (diabetes mellitus, type 2) ICD Codes: E11.9 - Type 2 diabetes mellitus without complications Status: Chronic Plan: On metformin 500 mg daily at home on low dose SSI (5) Urinary incontinence ICD Codes: R32 - Unspecified urinary incontinence Status: Chronic Plan: Continue tolterodine 4 mg by mouth daily (6) Development delay ICD Codes: R62.50 - Unspecified lack of expected normal physiological development in childhood Status: Chronic Plan: Patient lives at home with sister Was transferred to care home after discharge Requires assistance feeding herself, bathing, going to the toilet Case management consulted (7) FEN Plan: Fluids: PO Electrolytes: Supplement as needed Nutrition: Diabetic diet DVT prophylaxis: Lovenox q24H, SCDs bilaterally GI prophylaxis: Protonix 20 mg daily PO (Maria Esther Srinivasan MD R1) Problem Qualifiers (1) Diverticulitis large intestine: Qualified Codes: K57.32 - Diverticulitis of large intestine without perforation or abscess without bleeding (2) DM2 (diabetes mellitus, type 2): Qualified Codes: E11.8 - Type 2 diabetes mellitus with unspecified complications Maria Esther Srinivasan MD R1 Sep 07, 2017 10:55 Lyssa Santamaria MD Sep 07, 2017 15:49
[2017-09-07 12:00] VITALS: BP 142/80; PULSE 106; RESP 17; TEMP 96; O2SAT 95
[2017-09-07] MEDS ORDERED: HYDR-3516 PO (12:51)
[2017-09-07] MEDS ORDERED: OXYC1TAB63 PO (12:56)
== END 2017-09-07 15:32 | DRG 872 ==
LOC: NEPE 11:25 → NEDA 15:08 → HCPC 18:40 → N07B 09-05 20:50
PROVIDERS: ADMIT Family Medicine; ATTEND Family Medicine
DX: A41.9 Sepsis, unspecified organism (principal); K57.32 Diverticulitis of large intestine without perforation or abscess without bleeding; I10 Essential (primary) hypertension; N30.90 Cystitis, unspecified without hematuria; E11.9 Type 2 diabetes mellitus without complications; R62.50 Unspecified lack of expected normal physiological development in childhood; M19.041 Primary osteoarthritis, right hand; F41.9 Anxiety disorder, unspecified; F79 Unspecified intellectual disabilities; Z79.84 Long term (current) use of oral hypoglycemic drugs; Z85.42 Personal history of malignant neoplasm of other parts of uterus; Z90.710 Acquired absence of both cervix and uterus
CPT/HCPCS: 74177; 76937; 80048; 80053; 80076; 81001; 82948; 84484; 85025; 85027; 87040; 87077; 87086; 87186; 93005; 96361; 96365; 96366; 96375; J0692; J0696; J1650; J1815; J2270; J2405; J7030; J7040; Q9967

== ENCOUNTER 2017-09-11 22:16 | Emergency (ER) | payer MEDICARE, OTHER ==
[~2017-09-11] VITALS: Ht 180.3 cm; Wt 80.0 kg
[~2017-09-11 22:16] MED LIST changes: +AMLO10 PO; +BACT800T5 PO; -LISI-515 PO; +METR-1 PO
[2017-09-11 22:29] VITALS: BP 186/86; PULSE 120; RESP 20; TEMP 97.3; O2SAT 97
[2017-09-11] MEDS ORDERED: SODIUM CHLOR 0.9% 1000 ML INJ 1,000 ML IV SCH (22:40)
[2017-09-11] MEDS ORDERED: BACT800T5 PO (22:40)
[2017-09-11] MEDS ORDERED: HUMALOG SQ (22:40)
[2017-09-11] MEDS ORDERED: BISA10SU3 RECTAL (22:40)
[2017-09-11 22:45] VITALS: RESP 16; O2SAT 98
[2017-09-11] MEDS ORDERED: SODIUM CHLORIDE 0.9% FLUSH 10 ML FLUSH IVF PRN (22:45)
[2017-09-11 23:21] LABS: ALKALINE PHOSPHATASE 92 U/L (45-117); TOTAL BILIRUBIN ADULT 0.2 MG/DL (0.2-1.0); TOTAL PROTEIN 7.9 GM/DL (6.4-8.2)
[2017-09-11 23:22] LABS: ALBUMIN 3.4 GM/DL (3.4-5.0); ALT (GPT) 53 U/L (10-53); AST (GOT) 45 U/L (15-37); BICARBONATE 22.7 MEQ/L (21.0-32.0); BLOOD UREA NITROGEN 7 MG/DL (7-18); CALCIUM 8.9 MG/DL (8.5-10.1); CHLORIDE 106 MEQ/L (98-107); CREATININE 0.81 MG/DL (0.50-1.00); GLOMERULAR FILTRATION RATE 87 ML/MIN (>89); GLUCOSE,RANDOM 146 MG/DL (74-106); SODIUM (NA) 139 MEQ/L (136-145)
[2017-09-12 00:25] LABS: AUTOMATED NEUTROPHIL # 6.9 TH/MM3 (1.8-7.7); BASOPHIL # 0.1 TH/MM3 (0-0.2); BASOPHIL % 0.4 % (0.0-2.0); EOSINOPHIL # 0.3 TH/MM3 (0-0.4); EOSINOPHIL % 2.4 % (0.0-4.0); HEMATOCRIT 40.1 % (35.0-46.0); LYMPHOCYTE # 4.4 TH/MM3 (1.0-4.8); MEAN CELL VOLUME 80.9 FL (80.0-100.0); MEAN CORPUSCULAR HEMOGLOBIN 26.2 PG (27.0-34.0); MEAN CORPUSCULAR HGB CONC 32.4 % (32.0-36.0); MEAN PLATELET VOLUME 9.1 FL (7.0-11.0); MONO % 7.7 % (0.0-8.0); NEUT % 54.5 % (16.0-70.0); PLATELET COUNT 301 TH/MM3 (150-450); RED BLOOD COUNT 4.95 MIL/MM3 (4.00-5.30); RED CELL DISTRIBUTION WIDTH 15.6 % (11.6-17.2); WHITE BLOOD COUNT 12.6 TH/MM3 (4.0-11.0)
[2017-09-12] MEDS ORDERED: SODIUM CHLOR 0.9% 1000 ML INJ 1,000 ML IV ONE (00:30)
[2017-09-12 01:26] LABS: BILIRUBIN, URINE NEG (NEG); BLOOD, URINE LARGE (NEG); GLUCOSE,URINE NEG (NEG); KETONE, URINE NEG (NEG); NITRITE,URINE NEG (NEG); SQUAMOUS EPITHELIAL CELL URINE <1 /hpf (0-5); URINE COLOR LIGHT-YELLOW (YELLW/STRAW); URINE LEUKOCYTE ESTERASE SMALL (NEG)
--- NOTE | 2017-09-12 03:12 | PD ---
HPI Chief Complaint: Bleeding Time Seen by Provider: 22:33 Travel History International Travel<30 days: No Contact w/Intl Traveler<30days: No Traveled to known affect area: No History of Present Illness HPI Is a 61-year-old female with a history of developmental delay, endometrial cancer, status post laparoscopic hysterectomy, who presents here from the senior living with reports that she was bleeding profusely from her vagina. The patient denies any dizziness or shortness of breath. The report was that she was soaking her underwear in large amounts. There were no other complaints at the time of my examination. PFSH Past Medical History Asthma: Yes Blood Disorders: No Anxiety: Yes Depression: No Heart Rhythm Problems: No Cancer: No Cardiovascular Problems: No High Cholesterol: No Chemotherapy: No Chest Pain: No Congestive Heart Failure: No COPD: No Diabetes: Yes Patient Takes Glucophage: Yes Endocrine: Yes Gastrointestinal Disorders: No Genitourinary: Yes (WEAK BLADDER) Hepatitis: No Hiatal Hernia: No Hypertension: Yes Implanted Vascular Access Dvce: Yes Musculoskeletal: Yes (ARTHRITIS IN R HAND) Neurologic: Yes (MENTAL DISABILITIES) Psychiatric: Yes Reproductive: No Respiratory: Yes Radiation Therapy: No Sleep Apnea: No Thyroid Disease: No Tetanus Vaccination: Unknown Influenza Vaccination: Yes Past Surgical History AICD: No Hysterectomy: Yes Joint Replacement: No Pacemaker: No Other Surgery: No Social History Alcohol Use: No Tobacco Use: No Substance Use: No Allergies-Medications (Allergen,Severity, Reaction): Coded Allergies: No Known Allergies (Unverified Allergy, Unknown, 09/11/17) Reported Meds & Prescriptions Reported Meds & Active Scripts Active Oxycodone-Acetaminophen 5-325 mg Tab 1 Tab PO Q4H PRN Flagyl (Metronidazole) 500 Mg Tab 500 Mg PO TID Norvasc (Amlodipine Besylate) 10 Mg Tab 10 Mg PO DAILY Reported Humalog Inj (Insulin Human Lispro) 1,000 Unit/10 Ml Vial 2-12 Units SQ ACHS Max dose at bedtime:( )units; sugars < 70,(0)units; sugars 150-199,(2)units; sugars 200-249,(4)units; sugars 250-299,(7)units; sugars 300-349,(10)units; sugars more than 349,(12)units. Bisacodyl Supp (Bisacodyl) 10 Mg Supp 10 Mg RECTAL DAILY PRN Bactrim DS (Sulfamethoxazole-Trimethoprim) 800-160 Mg Tab 1 Tab PO BID Valium (Diazepam) 5 Mg Tab 5 Mg PO TID PRN Detrol LA (Tolterodine Tartrate) 4 Mg Cap 4 Mg PO DAILY Omeprazole 20 Mg Tab 20 Mg PO DAILY Dyrenium (Triamterene) 50 Mg Cap 50 Mg PO DAILY Metformin ER (Metformin HCl) 500 Mg Tabitha 500 Mg PO DAILY With evening meal Review of Systems Except as stated in HPI: all other systems reviewed are Neg General / Constitutional: No: Fever, Chills HENT: No: Headaches, Lightheadedness, Neck Pain Cardiovascular: No: Chest Pain or Discomfort, Palpitations Respiratory: No: Cough, Shortness of Breath Gastrointestinal: No: Nausea, Vomiting, Abdominal Pain, Other (No rectal bleeding.) Genitourinary: Positive: Vaginal Bleeding (Reported), No: Dysuria Musculoskeletal: No: Weakness, Pain Neurologic: No: Weakness, Dizziness, Headache Physical Exam Narrative GENERAL: Well-nourished, well-developed patient, in no acute distress. SKIN: Focused skin assessment warm/dry. HEAD: Normocephalic/atraumatic. EYES: No scleral icterus. No injection or drainage. NECK: Supple, trachea midline. No JVD or lymphadenopathy. CARDIOVASCULAR: Tachycardic with a rate of 107. No obvious murmurs appreciated. RESPIRATORY: Breath sounds equal bilaterally. No accessory muscle use. GASTROINTESTINAL: Abdomen soft, non-tender, nondistended. No rebound or guarding. GENITOURINARY: In the presence of the nurse Elinor, there was a small amount of clot noted at her introitus. On speculum exam there was no active bleeding or large clots present. RECTAL EXAM: In the presence of nurse Elinor. No masses or tenderness, stool is brown. Hemoccult negative. MUSCULOSKELETAL: No cyanosis, or edema. NEUROLOGICAL: Awake and alert. Cranial nerves II through XII intact. Motor and sensory grossly within normal limits. Five out of 5 muscle strength in all muscle groups. Data Data Last Documented VS Vital Signs Date Time Temp Pulse Resp B/P (MAP) Pulse Ox O2 Delivery O2 Flow Rate FiO2 09/11/17 22:45 16 98 Room Air 09/11/17 22:29 97.3 120 Orders Orders Basic Metabolic Panel (Bmp) (09/11/17 22:40) Comprehensive Metabolic Panel (09/11/17 22:40) Lipase (09/11/17 22:40) Urinalysis - C+S If Indicated (09/11/17 22:40) Type And Screen (09/11/17 22:40) Ecg Monitoring (09/11/17 22:40) Iv Access Insert/Monitor (09/11/17 22:40) Oximetry (09/11/17 22:40) Sodium Chlor 0.9% 1000 Ml Inj (Ns 1000 M (09/11/17 22:40) Sodium Chloride 0.9% Flush (Ns Flush) (09/11/17 22:45) Complete Blood Count With Diff (09/11/17 23:04) Sodium Chlor 0.9% 1000 Ml Inj (Ns 1000 M (09/12/17 00:30) Labs Laboratory Tests Test 09/11/17 22:50 09/12/17 00:15 White Blood Count 12.6 TH/MM3 Red Blood Count 4.95 MIL/MM3 Hemoglobin 13.0 GM/DL Hematocrit 40.1 % Mean Corpuscular Volume 80.9 FL Mean Corpuscular Hemoglobin 26.2 PG Mean Corpuscular Hemoglobin Concent 32.4 % Red Cell Distribution Width 15.6 % Platelet Count 301 TH/MM3 Mean Platelet Volume 9.1 FL Neutrophils (%) (Auto) 54.5 % Lymphocytes (%) (Auto) 35.0 % Monocytes (%) (Auto) 7.7 % Eosinophils (%) (Auto) 2.4 % Basophils (%) (Auto) 0.4 % Neutrophils # (Auto) 6.9 TH/MM3 Lymphocytes # (Auto) 4.4 TH/MM3 Monocytes # (Auto) 1.0 TH/MM3 Eosinophils # (Auto) 0.3 TH/MM3 Basophils # (Auto) 0.1 TH/MM3 CBC Comment DIFF FINAL Differential Comment Blood Urea Nitrogen 7 MG/DL Creatinine 0.81 MG/DL Random Glucose 146 MG/DL Total Protein 7.9 GM/DL Albumin 3.4 GM/DL Calcium Level 8.9 MG/DL Alkaline Phosphatase 92 U/L Aspartate Amino Transf (AST/SGOT) 45 U/L Alanine Aminotransferase (ALT/SGPT) 53 U/L Total Bilirubin 0.2 MG/DL Sodium Level 139 MEQ/L Potassium Level 3.6 MEQ/L Chloride Level 106 MEQ/L Carbon Dioxide Level 22.7 MEQ/L Anion Gap 10 MEQ/L Estimat Glomerular Filtration Rate 87 ML/MIN Lipase 184 U/L Urine Color LIGHT-YELLOW Urine Turbidity CLEAR Urine pH 7.0 Urine Specific [place] 1.005 Urine Protein NEG mg/dL Urine Glucose (UA) NEG mg/dL Urine Ketones NEG mg/dL Urine Occult Blood LARGE Urine Nitrite NEG Urine Bilirubin NEG Urine Urobilinogen LESS THAN 2.0 MG/DL Urine Leukocyte Esterase SMALL Urine RBC 21 /hpf Urine WBC 1 /hpf Urine Squamous Epithelial Cells <1 /hpf Microscopic Urinalysis Comment CULT NOT INDICATED MDM Medical Decision Making Medical Screen Exam Complete: Yes Emergency Medical Condition: Yes Differential Diagnosis Vaginal bleeding versus rectal bleeding versus postsurgical vaginal spotting versus anemia Narrative Course 61-year-old female with history of developmental delay, recent hysterectomy and bilateral oophorectomy, presents here with has no dizziness, no lightheadedness. On examination the patient had a small clot in her vaginal vault with no active bleeding. There is no large amount of blood noted rectal examination was heme-negative. The patient has been given 1 L of IV fluids. She has been observed throughout the night until she could be discharged back to the nursing facility. The patient was recently treated for diverticulitis. There are no other complaints at time of my examination. She will be discharged and will told be told to follow-up with her COMM[employer]ICATION[employer] INTER[employer] physician Dr. Alexx sarkar and her COMM[employer] oncologist Dr. Saleh. Diagnosis Primary Impression: Reported vaginal bleeding Additional Impressions: Status post hysterectomy Normal hemoglobin and hematocrit Additional Instructions: Follow-up with Dr. Jaron Saleh. Disposition: 01 DISCHARGE HOME Condition: Stable Danial Riley MD Sep 12, 2017 03:12
== END 2017-09-12 09:29 | disposition home or self-care (01) ==
LOC: NEPE 22:16
DX: N93.9 Abnormal uterine and vaginal bleeding, unspecified (principal); J45.909 Unspecified asthma, uncomplicated; I10 Essential (primary) hypertension; E11.9 Type 2 diabetes mellitus without complications; F41.9 Anxiety disorder, unspecified; Z90.710 Acquired absence of both cervix and uterus; Z85.42 Personal history of malignant neoplasm of other parts of uterus
CPT/HCPCS: 80053; 81001; 83690; 85025; 86850; 86900; 86901; 96360; 96361; 99284; J7030